=== PATIENT | female | born 1965 | race Caucasian/White ===

== ENCOUNTER 2023-01-12 11:57 | Inpatient (IN) ==
[2023-01-12] MEDS ORDERED: SODIUM CHLORIDE 0.9% 500 ML IV STA (12:23)
--- NOTE | 2023-01-12 12:23 | ED Triage Note ---
Date of Service January 12, 2023 History of Present Illness This patient was briefly evaluated while in triage. An abbreviated physical exam was performed. This patient is a 57-year-old Female who presents to the ED for evaluation of flank pain. Patient is from [place] and is in town visiting. She states she has a kidney stone which measured [address] scan at [facility]. She states that she was supposed to be admitted there but left because she was not being monitored or receiving pain medications. She is still having left sided flank pain. She has had fevers and was told she has an infection. She has a history of multiple kidney stones in the past. Currently denies pain but states that is because she has pain medication on board. Physical Exam VITALS: Vitals are noted on the nurse's note and reviewed by myself. HEART: Regular rate and rhythm without murmurs gallops or rubs. LUNGS: Clear to auscultation bilaterally without wheezes, rales or rhonchi. ABDOMEN: Positive bowel sounds x 4. Soft, nontender to palpation. No CVA t enderness. NEURO: Patient was alert and oriented to person place and time. Initial orders for labs and / or imaging were placed and patient was placed in the waiting area until a bed is available. Please see further documentation for the full ED course. MDM / Impression Impression Impression: Hydronephrosis with renal and ureteral calculous obstruction
--- NOTE | 2023-01-12 13:01 | XRay Report ---
XR KUB/Abdomen 1 view CLINICAL HISTORY: known left sided kidney stone TECHNIQUE: 1 view of the abdomen was obtained. Comparison: None available at the time of this dictation. FINDINGS: Lung bases are unremarkable. Degenerative changes are seen in the visualized skeleton. The bowel gas pattern is nonobstructive. A moderate amount of stool is noted within the large bowel. IMPRESSION: No radiographic evidence of nephrolithiasis. Of note, noncontrast CT abdomen pelvis is a more sensiti ve modality, and per ACR criteria is appropriate for patients with acute onset flank pain with known stone disease. ACT 112: Negative or not required by law. Electronically signed by: Adam Farfan M.D. 01/12/2023 12:59 PM
[2023-01-12 13:26] LABS: Basophils # (auto) 0.03 K/uL (0.00-0.20); Basophils % (auto) 0.3 %; Eosinophils % (auto) 2.3 %; Hematocrit (blood only) 38.2 % (37.0-47.0); Hemoglobin 12.8 g/dl (12.0-16.0); Immature Granulocytes # (auto) 0.03 K/uL (0.01-0.20); Immature Granulocytes % (auto) 0.3 %; Lymphocytes # (auto) 1.35 K/uL (1.20-3.40); Lymphocytes % (auto) 15.6 %; Mean Corpuscular Hemoglobin 29.4 pg (25.0-34.0); Mean Corpuscular Hgb Conc 33.5 g/dL (32.0-36.0); Mean Corpuscular Volume 87.8 fL (80.0-100.0); Mean Platelet Volume 10.4 fL (9.4-12.4); Monocytes # (auto) 0.63 K/uL (0.11-0.59); Monocytes % (auto) 7.3 %; Neutrophils # (auto) 6.42 K/uL (1.40-6.50); Neutrophils % (auto) 74.2 %; Platelet Count 315 K/uL (130-400); RDW Coefficient of Variation 13.3 % (11.5-14.5); RDW Standard Deviation 42.8 fL (36.4-46.3); Red Blood Count 4.35 M/uL (4.20-5.40); White Blood Count 8.66 K/ul (4.8-10.8)
[2023-01-12 13:41] LABS: Alanine Aminotransferase 17 U/L (7-52); Albumin Globulin Ratio 1.6 (0.9-2); Albumin Level 4.6 gm/dl (3.4-5.0); Alkaline Phosphatase 124 U/L (34-104); Anion Gap 6 (3-11); Aspartate Aminotransferase 19 U/L (13-39); BUN Creatinine Ratio 17.5 (10-20); Bilirubin,Total 0.5 mg/dl (0.2-1.0); Blood Urea Nitrogen 27 mg/dl (6-23); Calcium 9.4 mg/dl (8.6-10.3); Carbon Dioxide 27 mmol/L (21-32); Chloride 107 mmol/L (98-107); Est GFR (African American) 43.3 ml/min; Est GFR (Non-African American) 37.3 ml/min; Globulin 2.9 gm/dl (2.5-4.0); Glucose 114 mg/dl (70-99(Fasting)); Potassium 3.8 mmol/L (3.5-5.1); Sodium 140 mmol/L (136-145); Total Protein 7.5 gm/dl (6.0-8.3)
--- NOTE | 2023-01-12 14:43 | CT Scan Report ---
CT SCAN OF THE ABDOMEN AND PELVIS WITHOUT IV CONTRAST CLINICAL HISTORY: Left flank pain. COMPARISON STUDY: Abdominal radiograph dated 01/12/2023. TECHNIQUE: CT scan of the abdomen and pelvis is performed from the lung bases to the proximal femora. Images are reviewed in the axial, sagittal, and coronal planes. IV contrast was not administered for this examination. A dose lowering technique was utilized adhering to the principles of ALARA. CT DOSE: 1446.66 mGy.cm FINDINGS: Lung bases: The heart is normal in size and without pericardial effusion. The mitral annulus is calci fied. The lung bases are clear noting dependent atelectasis. There is a small hiatal hernia. Liver: The unenhanced liver is enlarged measuring 18.9 cm in length. The liver demonstrates diffusely diminished attenuation indicating steatosis. There is mild central intrahepatic biliary ductal dilat ation. Gallbladder: Surgically absent noting clips in the gallbladder fossa. Spleen: Normal in size and attenuation. Pancreas: Unremarkable. Adrenal glands: Unremarkable. Kidneys: The unenhanced kidneys are normal in size. There is a 9 mm obstructing calculus in the left proximal ureter seen on image #194. This is located at L3-L4 and causes moderate to severe left hydro ureteronephrosis. There is associated left-sided perinephric stranding and fluid. There are at least 4 additional nonobstructing left renal calculi which measure up to 3 mm. A 4 mm nonobstructing calcul us is seen in the right kidney. There is no right ureteral stone or right-sided hydronephrosis. There is no evidence of contour deforming renal mass lesion. Abdominal vasculature: The abdominal aorta is normal in course and caliber. Bowel: There is no bowel obstruction. Mild fecal retention is seen throughout the colon. The appendix is not visualized. Peritoneum: There is no intraperitoneal free air or abdominal ascites. There is a fat-containing umbi lical hernia. Lymphadenopathy: None. Pelvic viscera: The bladder is decompressed and grossly unremarkable. The uterus and adnexa are kaylee l as visualized. A metallic foreign body is noted in the right groin on axial image #388. Skeletal structures: The skeletal structures are osteopenic. There is a mild and age indeterminant ramos perior endplate compression deformity of T12. No lytic or blastic lesions are seen. An intrathecal ca theter is in place. Sclerotic change is noted in the sacroiliac joints. IMPRESSION: 1. There is a 9 mm obstructing calculus in the left proximal ureter. This causes moderate to severe l eft hydroureteronephrosis. 2. Additional nonobstructing renal calculi are seen bilaterally. 3. A metallic foreign body is noted in the right groin. 4. Mild and age indeterminate superior endplate compression deformity of T12. Correlate clinically. 5. Additional findings as above. ACT 112: Negative or not required by law. Electronically signed by: Joshua Rangel M.D. 01/12/2023 2:42 PM
[2023-01-12 14:46] LABS: Appearance Urine Clear (Clear); Bilirubin Urine Negative (Negative); Blood Urine Negative (Negative); Color Urine Yellow; Glucose Urine UA Negative (Negative); Ketones Urine Negative (Negative); Leukocyte Esterase Urine Negative (Negative); Nitrite Urine Negative (Negative); Protein Urine Negative (Negative); Specific Gravity Urine 1.014 (1.000-1.030); Urobilinogen Urine Negative (Negative); pH Urine 5.5 (4.5-7.5)
[2023-01-12] MEDS ORDERED: ONDANSETRON INJ 2 MG/ML 2 ML VIAL IV STA (15:37)
[2023-01-12] MEDS ORDERED: KETOROLAC TROMETHAMINE 15 MG/ML VIAL IV STA (15:37)
--- NOTE | 2023-01-12 15:37 | Emergency Department Note ---
History of Present Illness General Chief Complaint: Flank Pain Stated Complaint: KIDNEY STONE Time Seen by Provider: 01/12/23 15:19 History of Present Illness Provider Complaint: flank pain Onset (ago): 2 day(s) Pain Consistency: intermittent Location: L flank Severity: severe Current Pain Intensity: 9 Quality: + stabbing and + sharp Relieved By: + nothing Exacerbated By: + nothing Context: + history of similar episodes (Feels like previous kidney stones has needed stents and lithotripsy in the past); no foreign travel, no possible food poisoning, no sick contacts, no recent antibiotic use, no recent surgery/procedure or no recent injury Associated Symptoms: + nausea; no vomiting, no fever, no chills, no dysuria, no hematemesis, no hematochezia, no melena, no hematuria, no anorexia, no headache, no chest pain and no breathing difficulty Home Medications Medication Instructions Recorded Confirmed Type No Known Home Medications 01/12/23 01/12/23 History Allergies Allergy/AdvReac Type Severity Reaction Status Date / Time iodine Allergy Severe Anaphylaxis Unverified 01/12/23 15:48 levofloxacin [From Levaquin] AdvReac Mild Hallucinati Unverified 01/12/23 15:48 ng Past Med/Surg History Medical History 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 Antiphospholipid antibody syndrome HTN (hypertension) hx of, not currently on treatment Nephrolithiasis SLE (systemic lupus erythematosus) currently not on tx Stroke 2002 and 2005, R sided weakness and fatigue, walks with a cane T2DM (type 2 diabetes mellitus) Surgical History Hx of appendectomy Hx of cholecystectomy Social History Smoking Status: Never smoker Hx Alcohol Use: No Hx Substance Use: No Preferred Language: Ecuad[place] marital status: current occupational status: disabled current occupation: former teacher Feels Safe at Home: Yes Physical Exam Vital Signs: Vital Signs - 24 hr 01/12/23 12:18 Temperature 36.6 C Temperature Source Temporal Artery Sc an Pulse Rate 94 H Respiratory Rate 18 Respiratory Effort / Characteristics Non-Labored Sponta neous Respiratory Depth Normal Respiratory Patter n Regular Blood Pressure 187/114 H Blood Pressure Candy n 138 Blood Pressure Pos ition Sitting Pulse Oximetry 97 Oxygen Delivery Me thod Room Air Sepsis Recent Feve r Within 48 Hours Yes Sepsis New/Unexpla ined Change in Men jose Status N/A Sepsis Action Take n by Nursing No Action Required Physical Exam: Physical Exam GENERAL: oriented to person, place, and time. appears well-developed and well- nourished. HENT: Exam performed. - Head: Normocephalic and atraumatic. EYES: Conjunctivae and EOM are normal. Right eye exhibits no discharge. Left eye exhibits no discharge. No scleral icterus. NECK: Normal range of motion. Neck supple. No JVD present. CV: Normal rate, regular rhythm, normal heart sounds and intact distal pulses. There is no peripheral edema. Palpable radial pulses bue. PULM/CHEST: Effort normal and breath sounds normal. No respiratory distress. No stridor. no wheezes. no rales. ABD: The abdomen is soft. There is no tenderness. Left-sided CVA tenderness. NEURO: Motor and sensation grossly intact. SKIN: Skin is warm and dry. He is not diaphoretic. PSYCH: normal mood and affect. Behavior is normal. Judgment and thought content normal. Course Course 151: The patient was evaluated in room A11. A complete history and physical exam was performed Administered Medications Discontinued Medications Sodium Chloride (Nss) 500 mls @ 999 mls/hr IV .Q31M STA Stop: 01/12/23 12:53 Last Infusion: 01/12/23 15:34 Dose: 0 mls/hr Documented By: Admin: 01/12/23 13:06 Dose: 999 mls/hr Documented By: BS Medical Decision Making Laboratory Data Attestation: I reviewed the patient's lab results. 01/12/23 12:52 01/12/23 12:52 Lab Results 01/12/23 01/12/23 01/12/23 Range/Units 12:52 12:52 14:17 WBC 8.66 (4.8-10.8) K/ul RBC 4.35 (4.20-5.40) M/uL Hgb 12.8 (12.0-16.0) g/dl Hct 38.2 (37.0-47.0) % MCV 87.8 (80.0-100.0) fL MCH 29.4 (25.0-34.0) pg MCHC 33.5 (32.0-36.0) g/dL RDW Std Deviation 42.8 (36.4-46.3) fL RDW Coeff of Abraham 13.3 (11.5-14.5) % Plt Count 315 (130-400) K/uL MPV 10.4 (9.4-12.4) fL Immature Gran % (Auto) 0.3 % Neut % (Auto) 74.2 % Lymph % (Auto) 15.6 % [place] % (Auto) 7.3 % Eos % (Auto) 2.3 % Baso % (Auto) 0.3 % Neut # (Auto) 6.42 (1.40-6.50) K/uL Lymph # (Auto) 1.35 (1.20-3.40) K/uL [place] # (Auto) 0.63 H (0.11-0.59) K/uL Eos # (Auto) 0.20 (0.00-0.50) K/uL Baso # (Auto) 0.03 (0.00-0.20) K/uL Immature Gran # (Auto) 0.03 (0.01-0.20) K/uL Sodium 140 (136-145) mmol/L Potassium 3.8 (3.5-5.1) mmol/L Chloride 107 (98-107) mmol/L Carbon Dioxide 27 (21-32) mmol/L Anion Gap 6 (3-11) BUN 27 H (6-23) mg/dl Creatinine 1.54 H (0.6-1.2) mg/dl Est Cr Clr Drug Dosing Not Reportable Est GFR ( Amer) 43.3 ml/min Est GFR (Non-Af Amer) 37.3 ml/min BUN/Creatinine Ratio 17.5 (10-20) Glucose 114 H (70-99(Fasting)) mg/dl Calcium 9.4 (8.6-10.3) mg/dl Total Bilirubin 0.5 (0.2-1.0) mg/dl AST 19 (13-39) U/L ALT 17 (7-52) U/L Alkaline Phosphatase 124 H (34-104) U/L Total Protein 7.5 (6.0-8.3) gm/dl Albumin 4.6 (3.4-5.0) gm/dl Globulin 2.9 (2.5-4.0) gm/dl Albumin/Globulin Ratio 1.6 (0.9-2) Urine Color Yellow Urine Appearance Clear (Clear) Urine pH 5.5 (4.5-7.5) Ur Specific [place] 1.014 (1.000-1.030) Urine Protein Negative (Negative) Urine Glucose (UA) Negative (Negative) Urine Ketones Negative (Negative) Urine Blood Negative (Negative) Urine Nitrite Negative (Negative) Urine Bilirubin Negative (Negative) Urine Urobilinogen Negative (Negative) Ur Leukocyte Esterase Negative (Negative) Imaging Data Radiologist's Impression: KUB X-Ray 01/12/23 12:23 XR KUB/Abdomen 1 view CLINICAL HISTORY: known left sided kidney stone TECHNIQUE: 1 view of the abdomen was obtained. Comparison: None available at the time of this dictation. FINDINGS: Lung bases are unremarkable. Degenerative changes are seen in the visualized skeleton. The bowel gas pattern is nonobstructive. A moderate amount of stool is noted within the large bowel. IMPRESSION: No radiographic evidence of nephrolithiasis. Of note, noncontrast CT abdomen pelvis is a more sensitive modality, and per ACR criteria is appropriate for patients with acute onset flank pain with known stone disease. ACT 112: Negative or not required by law. Electronically signed by: Adam Farfan M.D. 01/12/2023 12:59 PM Abdomen/Pelvis CT 01/12/23 13:45 CT SCAN OF THE ABDOMEN AND PELVIS WITHOUT IV CONTRAST CLINICAL HISTORY: Left flank pain. COMPARISON STUDY: Abdominal radiograph dated 01/12/2023. TECHNIQUE: CT scan of the abdomen and pelvis is performed from the lung bases to the proximal femora. Images are reviewed in the axial, sagittal, and coronal planes. IV contrast was not administered for this examination. A dose lowering technique was utilized adhering to the principles of ALARA. CT DOSE: 1446.66 mGy.cm FINDINGS: Lung bases: The heart is normal in size and without pericardial effusion. The mitral annulus is calcified. The lung bases are clear noting dependent atelectas is. There is a small hiatal hernia. Liver: The unenhanced liver is enlarged measuring 18.9 cm in length. The liver demonstrates diffusely diminished attenuation indicating steatosis. There is mild central intrahepatic biliary ductal dilatation. Gallbladder: Surgically absent noting clips in the gallbladder fossa. Spleen: Normal in size and attenuation. Pancreas: Unremarkable. Adrenal glands: Unremarkable. Kidneys: The unenhanced kidneys are normal in size. There is a 9 mm obstructing calculus in the left proximal ureter seen on image #194. This is located at L3- L4 and causes moderate to severe left hydroureteronephrosis. There is associated left-sided perinephric stranding and fluid. There are at least 4 additional nonobstructing left renal calculi which measure up to 3 mm. A 4 mm nonobstructing calculus is seen in the right kidney. There is no right ureteral stone or right-sided hydronephrosis. There is no evidence of contour deforming renal mass lesion. Abdominal vasculature: The abdominal aorta is normal in course and caliber. Bowel: There is no bowel obstruction. Mild fecal retention is seen throughout the colon. The appendix is not visualized. Peritoneum: There is no intraperitoneal free air or abdominal ascites. There is a fat-containing umbilical hernia. Lymphadenopathy: None. Pelvic viscera: The bladder is decompressed and grossly unremarkable. The uterus and adnexa are normal as visualized. A metallic foreign body is noted in the right groin on axial image #388. Skeletal structures: The skeletal structures are osteopenic. There is a mild and age indeterminant superior endplate compression deformity of T12. No lytic or blastic lesions are seen. An intrathecal catheter is in place. Sclerotic change is noted in the sacroiliac joints. IMPRESSION: 1. There is a 9 mm obstructing calculus in the left proximal ureter. This causes moderate to severe left hydroureteronephrosis. 2. Additional nonobstructing renal calculi are seen bilaterally. 3. A metallic foreign body is noted in the right groin. 4. Mild and age indeterminate superior endplate compression deformity of T12. Correlate clinically. 5. Additional findings as above. ACT 112: Negative or not required by law. Electronically signed by: Joshua Rangel M.D. 01/12/2023 2:42 PM [facility] Narrative Cardiac monitoring: An order was placed for continuous cardiac monitoring. The monitor shows a rate of 90 with sinus rhythm interpreted by me Patient was seen during a time of extreme volume and extreme acuity in the emergency department. Nursing triage protocols were initiated and labs and imaging were drawn by protocol in the triage area. Labs show a creatinine of 1.54. Imaging shows a 9 mm kidney stone. Spoke with Mel from your to evaluate the patient. [facility] team spoke with Leixs who stated to admit to Dr. Sweeney. Impression & Plan Hydronephrosis with renal and ureteral calculous obstruction Discharge Plan Visit Data Chief Complaint: Flank Pain Stated Complaint: KIDNEY STONE ED Provider: Kurt Suazo Discharge Problem: Hydronephrosis with renal and ureteral calculous obstruction Patient Disposition: Admitted As Inpatient Forms Stand Alone Forms: [employer] Prescriptions Prescriptions: No Action No Known Home Medications Referrals Referrals: PCP,NO [Primary Care Provider] -
[2023-01-12] MEDS ORDERED: SODIUM CHLORIDE 0.9% 1,000 ML IV SCH (15:45)
[2023-01-12] MEDS ORDERED: MoRPHine SULFATE 4 MG/ML 1 ML CARP\\VIAL IV STA (16:15)
[2023-01-12] MEDS ORDERED: MoRPHine SULFATE 4 MG/ML 1 ML CARP\\VIAL ONE (16:17)
--- NOTE | 2023-01-12 16:23 | History & Physical Report ---
Date of Service January 12, 2023 Assessment & Plan (1) Hydronephrosis with renal and ureteral calculous obstruction: (2) Acute renal insufficiency: (3) SLE (systemic lupus erythematosus): Plan This is a 57-year-old female who presents to ED secondary to left flank pain x2 days. Patient is not from the area, previously resided in [place] and is now relocating to [place]. She is passing through the area when she developed her left flank pain. She has prior past medical history of systemic lupus, antiphospholipid antibody syndrome, history of CVA x2 with residual right-sided weakness for which she ambulates with a cane, CKD, history of previous kidney stones treated with lithotripsy, history of HTN and T2DM. Obstructing L prox ureteral stone with mod-severe hydronephrosis admit to medical discussed with urology, Mel Hernán will make NPO after midnight start flomax 0.4mg at HS strain all urine pain control with IV morphine severe pain and oral oxy moderate pain schedule tylenol IV LR @ 150cc/hr avoid NSAIDS due to renal disease Acute renal insufficiency on CKD unknown baseline cr but pt tells me she has a degree of renal dysfunction due to lupus she states her baseline eGFR is 40-60 current EGFR 37, Cr 1.5, suspect some degree of insufficiency given stone monitor renal fxn closely, avoid nephrotoxic agents SLE hx of CVA x 2 with residual R sided weakness Hx of HTN/T2DM pt currently off all medications due to lack of insurance no current manifestations of SLE at this time obtain a1c and monitor bp accordingly, bp likely elevated in setting of pain DVT ppx: give heparin x1 dose tonight until determine timing of procedure, SCDS, recommend resuming chemical ppx at discretion of urology FULL CODE PCP: currently establishing with new providers when they arrive to [place], [place] Pt was seen and examined in collaboration with Dr. Gan, please see addendum A total of 75 was spent coordinating, documenting, and providing care for this patient excluding time spent in the performance of separately billed services. This included personally viewing all current laboratories and imaging studies, medication reconciliation, outpatient chart review, and discussion with specialists. History of Present Illness Chief Complaint: L Flank Pain x 2 days. Primary Care Provider: NO PCP This is a 57-year-old female who presents to ED secondary to left flank pain x2 days. Patient is not from the area, previously resided in [place] and is now relocating to [place]. She is passing through the area when she developed her left flank pain. She has prior past medical history of systemic lupus, antiphospholipid antibody syndrome, history of CVA x2 with residual right-sided weakness for which she ambulates with a cane, CKD, history of previous kidney stones treated with lithotripsy, history of HTN and T2DM. Currently she is not taking any medications as she is disabled and lost job; therefore, they are without insurance. Left leg pain started at 5 AM yesterday. Pain is constant but waxes and wanes in severity. Pain is nonradiating. She denies any fever, chills, sweats, lightheadedness, dizziness, dysuria, hematuria, increased urgency or frequency with urination, nausea, vomiting, abdominal pain and change in bowel habits. She has history of kidney stones in the past requiring lithotripsy, but this feels different than previous. In ED patient remained hemodynamically stable. There was no signs of sepsis. Her CBC and CMP was generally unremarkable several mildly elevated BUN and creatinine at 27 and 1.54. Her urinalysis was negative. CT abdomen pelvis revealed a 9 mm obstructing stone at the left proximal ureter with severe hydronephrosis. 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 Antiphospholipid antibody syndrome HTN (hypertension) hx of, not currently on treatment Nephrolithiasis SLE (systemic lupus erythematosus) currently not on tx Stroke 2002 and 2005, R sided weakness and fatigue, walks with a cane T2DM (type 2 diabetes mellitus) Surgical History (Updated 01/12/23 @ 16:31 by Lexis Hood PA-C) History of hip surgery Hx of appendectomy Hx of cholecystectomy Hx of lithotripsy Hx of shoulder surgery rotator cuff Family History (Updated 01/12/23 @ 16:23 by Lexis Hood PA-C) Other Family history non-contributory Social History Smoking Status: Never smoker Hx Alcohol Use: No Hx Substance Use: No Preferred Language: Turkish marital status: current occupational status: disabled current occupation: former teacher Feels Safe at Home: Yes Review of Systems Review of Systems: All systems reviewed & are unremarkable except as noted in HPI & below Physical Exam Physical Exam: Constitutional: WD/WN, vitals as above, NAD, sitting up in bed, pleasant, conversing easily Head: Normocephalic, Atraumatic Eyes: PERRL, conjunctivae normal, anicteric sclerae ENMT: external ear and nose normal, oropharynx normal Neck: trachea midline, no thyromegaly normal visual inspection Respiratory: normal respiratory effort, lungs clear to auscultation, no wheeze, rales, rhonchi. Normal insp/exp effort, no accessory muscle use Cardiovascular: RRR, no murmur, no edema Vessels: no JVD or carotid bruit Chest: normal inspection of chest Abdomen: normal bowel sounds, soft, nontender, no hepatosplenomegaly Musculoskeletal: no cyanosis or clubbing, extremities motor strength 5/5 Skin: no rashes, warm and dry normal turgor Neurologic: PERRL, EOMI, accommodation nl, no face palsy, no dysarthria CN's II-XI intact bilaterally and moves all extremities Psychiatric: A+Ox3, euthymic affect Lymphatic: no cervical or axillary lymphadenopathy : deferred Results & Data Results & Data Vital Signs (Past 12 Hours) Vital Signs Temp Pulse Resp BP Pulse Ox O2 Del Method 01/12/23 12:18 36.6 C 94 H 18 187/114 H 97 Room Air Diagnostic Findings KUB X-Ray 01/12/23 12:23 XR KUB/Abdomen 1 view CLINICAL HISTORY: known left sided kidney stone TECHNIQUE: 1 view of the abdomen was obtained. Comparison: None available at the time of this dictation. FINDINGS: Lung bases are unremarkable. Degenerative changes are seen in the visualized skeleton. The bowel gas pattern is nonobstructive. A moderate amount of stool is noted within the large bowel. IMPRESSION: No radiographic evidence of nephrolithiasis. Of note, noncontrast CT abdomen pelvis is a more sensitive modality, and per ACR criteria is appropriate for patients with acute onset flank pain with known stone disease. ACT 112: Negative or not required by law. Electronically signed by: Adam Farfan M.D. 01/12/2023 12:59 PM Abdomen/Pelvis CT 01/12/23 13:45 CT SCAN OF THE ABDOMEN AND PELVIS WITHOUT IV CONTRAST CLINICAL HISTORY: Left flank pain. COMPARISON STUDY: Abdominal radiograph dated 01/12/2023. TECHNIQUE: CT scan of the abdomen and pelvis is performed from the lung bases to the proximal femora. Images are reviewed in the axial, sagittal, and coronal planes. IV contrast was not administered for this examination. A dose lowering technique was utilized adhering to the principles of ALARA. CT DOSE: 1446.66 mGy.cm FINDINGS: Lung bases: The heart is normal in size and without pericardial effusion. The mitral annulus is calcified. The lung bases are clear noting dependent atelectasis. There is a small hiatal hernia. Liver: The unenhanced liver is enlarged measuring 18.9 cm in length. The liver demonstrates diffusely diminished attenuation indicating steatosis. There is mild central intrahepatic biliary ductal dilatation. Gallbladder: Surgically absent noting clips in the gallbladder fossa. Spleen: Normal in size and attenuation. Pancreas: Unremarkable. Adrenal glands: Unremarkable. Kidneys: The unenhanced kidneys are normal in size. There is a 9 mm obstructing calculus in the left proximal ureter seen on image #194. This is located at L3- L4 and causes moderate to severe left hydroureteronephrosis. There is associated left-sided perinephric stranding and fluid. There are at least 4 additional nonobstructing left renal calculi which measure up to 3 mm. A 4 mm nonobstructing calculus is seen in the right kidney. There is no right ureteral stone or right-sided hydronephrosis. There is no evidence of contour deforming renal mass lesion. Abdominal vasculature: The abdominal aorta is normal in course and caliber. Bowel: There is no bowel obstruction. Mild fecal retention is seen throughout the colon. The appendix is not visualized. Peritoneum: There is no intraperitoneal free air or abdominal ascites. There is a fat-containing umbilical hernia. Lymphadenopathy: None. Pelvic viscera: The bladder is decompressed and grossly unremarkable. The uterus and adnexa are normal as visualized. A metallic foreign body is noted in the right groin on axial image #388. Skeletal structures: The skeletal structures are osteopenic. There is a mild and age indeterminant superior endplate compression deformity of T12. No lytic or blastic lesions are seen. An intrathecal catheter is in place. Sclerotic change is noted in the sacroiliac joints. IMPRESSION: 1. There is a 9 mm obstructing calculus in the left proximal ureter. This causes moderate to severe left hydroureteronephrosis. 2. Additional nonobstructing renal calculi are seen bilaterally. 3. A metallic foreign body is noted in the right groin. 4. Mild and age indeterminate superior endplate compression deformity of T12. Correlate clinically. 5. Additional findings as above. ACT 112: Negative or not required by law. Electronically signed by: Joshua Rangel M.D. 01/12/2023 2:42 PM Medications Administered Medication List Discontinued Medications Sodium Chloride (Nss) 500 mls @ 999 mls/hr IV .Q31M STA Stop: 01/12/23 12:53 Last Infusion: 01/12/23 15:34 Dose: 0 mls/hr Documented By: Admin: 01/12/23 13:06 Dose: 999 mls/hr Documented By: BS COVID-19 Results Results COVID-19 Adm Lab Results: RBC 4.35 M/uL (4.20-5.40) 01/12/23 WBC 8.66 K/ul (4.8-10.8) 01/12/23 Hgb 12.8 g/dl (12.0-16.0) 01/12/23 Hct 38.2 % (37.0-47.0) 01/12/23 Plt Count 315 K/uL (130-400) 01/12/23 Neutrophils (%) (Auto) 74.2 % 01/12/23 Lymphocytes (%) (Auto) 15.6 % 01/12/23 Monocytes # (Auto) 0.63 K/uL (0.11-0.59) H 01/12/23 Eosinophils # (Auto) 0.20 K/uL (0.00-0.50) 01/12/23 Immature Granulocyte % (Auto) 0.3 % 01/12/23 Neutrophils # (Auto) 6.42 K/uL (1.40-6.50) 01/12/23 Lymphocytes # (Auto) 1.35 K/uL (1.20-3.40) 01/12/23 Monocytes # (Auto) 0.63 K/uL (0.11-0.59) H 01/12/23 Eosinophils # (Auto) 0.20 K/uL (0.00-0.50) 01/12/23 Basophils # (Auto) 0.03 K/uL (0.00-0.20) 01/12/23 Immature Granulocyte # (Auto) 0.03 K/uL (0.01-0.20) 3 Na 140 mmol/L (136-145) 01/12/23 K 3.8 mmol/L (3.5-5.1) 01/12/23 Cl 107 mmol/L (98-107) 01/12/23 CO2 27 mmol/L (21-32) 01/12/23 Anion Gap 6 (3-11) 01/12/23 BUN 27 mg/dl (6-23) H 01/12/23 Creatinine 1.54 mg/dl (0.6-1.2) H 01/12/23 BUN/Creatinine Ratio 17.5 (10-20) 01/12/23 Glucose Level 114 mg/dl (70-99(Fasting)) H 01/12/23 Ca 9.4 mg/dl (8.6-10.3) 01/12/23 Total Bilirubin 0.5 mg/dl (0.2-1.0) 01/12/23 AST/SGOT 19 U/L (13-39) 01/12/23 ALT/SGPT 17 U/L (7-52) 01/12/23 Alkaline Phosphatase 124 U/L (34-104) H 01/12/23 Total Protein 7.5 gm/dl (6.0-8.3) 01/12/23 Albumin 4.6 gm/dl (3.4-5.0) 01/12/23 Globulin 2.9 gm/dl (2.5-4.0) 01/12/23 Albumin/Globulin Ratio 1.6 (0.9-2) 01/12/23 Code Status & VTE Plan Code Status FULL CODE Supervising Physician Co-Signing Physician Notes I have seen and examined the patient and have discussed the case with the provider above. I agree with the assessment and plan as stated. 57-year-old female presented with left flank pain secondary to ureteral colic. CT abdomen pelvis without contrast reveals a 9 mm obstructing calculus in the left proximal ureter with severe left hydroureteronephrosis. On exam she has significant left CVA tenderness. She is otherwise not appearing septic, urine is not infected. She has underlying CKD stage III which she reports at baseline (records are unavailable as patient is from out of town). Current creatinine is elevated today at 1.54. She is hemodynamically stable and afebrile. She is ambulatory. Pain is being controlled with morphine. Avoiding NSAIDs at this time given LINDA. Agree with starting Flomax and continuing fluids. Appreciate urology consult for definitive stone management. Notably patient has lupus but no evidence of lupus flare at this time. DO Malik
[2023-01-12] MEDS ORDERED: POLYETHYLENE (MIRALAX) 17 GM PACK PO PRN (19:55)
[2023-01-12] MEDS ORDERED: ALUMINUM/MAGNESIUM SUSP 30 ML UDC PO PRN (19:55)
[2023-01-12] MEDS ORDERED: ACETAMINOPHEN 325 MG TAB PO PRN (19:55)
[2023-01-12] MEDS ORDERED: MAGNESIUM HYDROXIDE SUSP 30 ML UDC PO PRN (19:55)
[2023-01-12] MEDS: ACETAMINOPHEN 325 MG TAB PO SCH (20:16)
[2023-01-12] MEDS: MoRPHine SULFATE 4 MG/ML 1 ML CARP\\VIAL IV PRN (20:18)
[2023-01-12] MEDS ORDERED: HEPARIN SOD 5,000 UNIT/0.5 ML VIAL SQ ONE (21:00)
[2023-01-12] MEDS: ONDANSETRON INJ 2 MG/ML 2 ML VIAL IV PRN (21:01)
[2023-01-12] MEDS: DOCUSATE SODIUM/SENNA 50/8.6MG TAB PO SCH (21:38)
[2023-01-12] MEDS: TAMSULOSIN HCL 0.4 MG CAP PO SCH (21:38)
[2023-01-12] MEDS: LACTATED RINGER'S 1,000 ML IV SCH (22:04)
[2023-01-12] MEDS: oxyCODONE HCL IR 5 MG TAB (IMMEDIATE RELEASE) PO PRN (23:13)
[2023-01-13] MEDS: MoRPHine SULFATE 4 MG/ML 1 ML CARP\\VIAL IV PRN ×4 (00:36→21:20)
[2023-01-13] MEDS: PROMETHAZINE HCL 12.5 MG in SODIUM CHLORIDE 0.9% 50 ML IV PRN ×3 (00:36→21:17)
[2023-01-13] MEDS: ONDANSETRON INJ 2 MG/ML 2 ML VIAL IV PRN (04:48)
[2023-01-13] MEDS: ACETAMINOPHEN 325 MG TAB PO SCH ×3 (04:51→21:20)
[2023-01-13] MEDS: LACTATED RINGER'S 1,000 ML IV SCH ×3 (04:53→16:47)
--- NOTE | 2023-01-13 08:53 | Anesthesiology Consultation ---
Date of Service January 13, 2023 Assessment & Plan (1) Encounter for pre-operative examination: Chart Review Chart Review: Acceptable Risk for Surgery and Patient NOT seen in Pre Admission Testing Consults Requested none History Surgery Operation Date: 01/13/23 07:00 Proposed Procedures p Cystoscopy, Left Stent Placement - Hoang Magallanes, Height/Weight Height: 5 ft 10 in Weight: 99.9 kg Allergies Allergy/AdvReac Type Severity Reaction Status Date / Time iodine Allergy Severe Anaphylaxis Unverified 01/12/23 15:48 levofloxacin [From Levaquin] AdvReac Mild Hallucinati Unverified 01/12/23 15:48 ng Medications Home Medications Medication Instructions Recorded Confirmed Last Taken No Known Home Medications 01/12/23 01/12/23 Unknown Active Medications Generic Name Dose Route Start Last Admin Trade Name Freq PRN Reason Stop Dose Admin Acetaminophen 650 mg 01/12/23 19:55 01/13/23 04:51 Acetaminophen 325 Mg Tab PO 02/11/23 19:54 650 mg Q8 CHANCE Administration Lactated Ringer's 1,000 mls @ 150 mls/hr 01/12/23 19:55 01/13/23 04:53 Lr IV 02/11/23 19:54 150 mls/hr .Q6H40M CHANCE Administration Promethazine HCl 12.5 mg/ 50.5 mls @ 202 mls/hr 01/12/23 23:12 01/13/23 01:20 Sodium Chloride IV 02/11/23 23:11 Infused Q6H PRN Infusion Nausea And Vomiting Morphine Sulfate 4 mg 01/12/23 19:55 01/13/23 04:44 Morphine Sulfate 4 Mg/Ml 1 Ml Carp\Vial IV 01/26/23 19:54 4 mg Q4H PRN Administration severe pain 7,8,9,10 Ondansetron HCl 4 mg 01/12/23 19:55 01/13/23 04:48 Ondansetron Inj 2 Mg/Ml 2 Ml Vial IV 02/11/23 19:54 4 mg Q6H PRN Administration Nausea Oxycodone HCl 5 mg 01/12/23 19:55 01/12/23 23:13 Oxycodone Hcl Ir 5 Mg Tab (Immediate Release) PO 01/26/23 19:54 5 mg Q4H PRN Administration moderate pain 3,4,5,6 Senna/Docusate Sodium 2 tab 01/12/23 21:00 01/12/23 21:38 Docusate Sodium/Senna 50/8.6mg Tab PO 02/11/23 20:59 2 tab HS CHANCE Administration Tamsulosin HCl 0.4 mg 01/12/23 21:00 01/12/23 21:38 Tamsulosin Hcl 0.4 Mg Cap PO 02/11/23 20:59 0.4 mg HS CHANCE Administration Past Medical History Medical History (Updated 01/13/23 @ 08:53 by Alan Little MD) 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 Antiphospholipid antibody syndrome Encounter for pre-operative examination HTN (hypertension) hx of, not currently on treatment Nephrolithiasis SLE (systemic lupus erythematosus) currently not on tx Stroke 2002 and 2005, R sided weakness and fatigue, walks with a cane T2DM (type 2 diabetes mellitus) Past Family History Family History Other Family history non-contributory Past Surgical History Surgical History History of hip surgery Hx of appendectomy Hx of cholecystectomy Hx of lithotripsy Hx of shoulder surgery rotator cuff Social History Smoking Status: Never smoker Hx Alcohol Use: No Hx Substance Use: No Physical Exam Vital Signs Last Vital Signs Temp 37.1 C 01/13/23 07:06 Pulse 67 01/13/23 07:06 Resp 18 01/13/23 07:06 BP 120/72 01/13/23 07:06 Pulse Ox 92 01/13/23 07:06 O2 Del Method Room Air 01/13/23 07:06 Testing Laboratory Results 01/12/23 12:52 01/12/23 12:52 Urine Color Yellow 01/12/23 14:17 Urine Appearance Clear (Clear) 01/12/23 14:17 Urine pH 5.5 (4.5-7.5) 01/12/23 14:17 Ur Specific [place] 1.014 (1.000-1.030) 01/12/23 14:17 Urine Protein Negative (Negative) 01/12/23 14:17 Urine Glucose (UA) Negative (Negative) 01/12/23 14:17 Urine Ketones Negative (Negative) 01/12/23 14:17 Urine Nitrite Negative (Negative) 01/12/23 14:17 Ur Leukocyte Esterase Negative (Negative) 01/12/23 14:17
--- NOTE | 2023-01-13 09:07 | Urology Consultation ---
Date of Consultation January 13, 2023 Assessment & Plan (1) Hydronephrosis with renal and ureteral calculous obstruction: (2) Acute renal insufficiency: (3) Renal colic: Plan 57yo/F admitted with intractable left flank pain secondary to a 9mm obstructing stone at the left proximal ureter with severe hydronephrosis. - Afebrile and hemodynamically stable. - Labs reviewed- WBC 8.66, hemoglobin 12.8, Creatinine 1.54. - UA without signs of infection. - Discussed acute stone management with cystoscopy and stent placement. Ureteral stents were discussed as well as postoperative issues and pain management. She is aware a second procedure will be needed for stone treatment. All questions were answered. She is agreeable to proceeding. - Plan to proceed to OR today for cystoscopy, left retrograde pyelogram, left ureteral stent placement. - Risks and benefits to be reviewed with patient by Dr. Magallanes. - Will cover with IV Ancef preoperatively. - Keep NPO. - Continue supportive care, pain management prn, and tamsulosin. - Urology will follow. History of Present Illness Attending Physician: Stephan Vilchis MD History of Present Illness 57-year-old female with PMHx including nephrolithiasis, systemic lupus, antiphospholipid antibody syndrome, history of CVA x2 with residual right-sided weakness for which she ambulates with a cane, CKD, HTN and T2DM who presented to the ED yesterday with severe left flank pain. On arrival she was afebrile and hemodynamically stable. Labs notable for a creatinine 1.54 and no leukocytosis. Urinalysis without signs of infection or blood. CT abdomen pelvis demonstrated a 9 mm obstructing stone at the left proximal ureter with severe hydronephrosis. She was admitted to medicine service for further management. CT abdomen pelvis- 1. There is a 9 mm obstructing calculus in the left proximal ureter. This causes moderate to severe left hydroureteronephrosis. 2. Additional nonobstructing renal calculi are seen bilaterally. 3. A metallic foreign body is noted in the right groin. 4. Mild and age indeterminate superior endplate compression deformity of T12. Correlate clinically. Pt examined at bedside this AM. Awake, resting in bed on arrival. No acute distress. Still with left flank pain, manageable with medication. Denies fevers, chills, nausea, vomiting. Voiding without issues. Denies hematuria and dysuria. Has been NPO. Patient is not from the area, previously resided in [place] and is now relocating to [place]. She is visiting in the area until Feb 07. Hx of nephrolithiasis with prior interventions. Has poorly tolerated stents in the past. Attending note: Patient independently assessed, examined, interviewed, and evaluated. Agree with note as above. Patient's vitals and labs were all reviewed. Pertinent values in the HPI and plan section. Imaging was reviewed interpreted by myself. Agree with read. On my evaluation patient has an obstructing stone in the proximal left ureter causing considerable obstruction with inflammatory changes and perinephric stranding. Patient has numerous small stones within the left kidney as well. Stone in the left ureter approximately 9 mm. Vitals were reviewed. Currently afebrile. Blood pressure is stable at 120/72. Patient is satting 92% on room air. Patient's white count is 8. 6 6. Creatinine is elevated 1.54. Hemoglobin is 12.8. Discussed findings extensively with patient and family. Reviewed with nurse practitioner as well as consulting physicians/team. Patient's complicated medical and surgical history was reviewed and summarized above. Patient's surgical, medical, social, and family history were all reviewed with pertinent values as above. Discussed patient's current diagnosis as well as concerns and issues. Reviewed different options moving forward. Discussed potential risks and benefits as well as possible options and concerns. Reviewed potential surgical options and interventions. Discussed potential issues and concerns related to intervention. Risk and benefits were discussed extensively with patient and any available family. Discussed potential risks related to anesthesia. Discussed risks of bleeding infection and injury. Risks and benefits discussed at length for procedure. These include bleeding, infection, injury to surrounding tissues or organs, and risks associated with anesthesia. Patient states understanding and agrees to proceed. Will sign consent and proceed. Plan for cystoscopy with left stent placement and possible stone treatment. 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 Antiphospholipid antibody syndrome Encounter for pre-operative examination HTN (hypertension) hx of, not currently on treatment Nephrolithiasis SLE (systemic lupus erythematosus) currently not on tx Stroke 2002 and 2005, R sided weakness and fatigue, walks with a cane T2DM (type 2 diabetes mellitus) Surgical History History of hip surgery Hx of appendectomy Hx of cholecystectomy Hx of lithotripsy Hx of shoulder surgery rotator cuff Family History Other Family history non-contributory Social History Smoking Status: Never smoker Hx Alcohol Use: No Hx Substance Use: No Preferred Language: French Hydrogenation Operator Required: No Beliefs That Will Affect Care: None marital status: Current Living Situation: Spouse Current Living Situation Comment: in travel trailer current occupational status: disabled current occupation: former teacher Other Information That Helps Us Care for You: No Feels Safe at Home: Yes Safety Concerns: Feels Safe At This Time Assistive Devices: Cane and Denture - Upper Assistive Devices Comment: partial upper denture not with patient Review of Systems Review of Systems: All systems reviewed & are unremarkable except as noted in HPI & below Physical Exam Constitutional: well developed and well nourished; no acute distress Neck: normal visual inspection Respiratory: normal respiratory effort; no respiratory distress and no labored breathing Gastrointestinal (Abdomen): Inspection/Auscultation: abdomen normal to inspection Musculoskeletal: Head/Neck/Chest: normocephalic Skin: No visible rashes or lesions to exposed skin areas Neurologic: awake Psychiatric: A+Ox3, euthymic affect Results & Data Vital Signs (Past 12 Hours) Vital Signs Temp Pulse Resp BP Pulse Ox O2 Del Method 01/13/23 07:06 37.1 C 67 18 120/72 92 Room Air 01/12/23 21:30 Room Air 01/12/23 21:30 37.8 C H 89 16 150/103 H 97 Room Air 01/12/23 21:01 97 H 16 155/107 H 95 Room Air PG Care Time/CCT Total # of Minutes Spent Total Time Spent with Patient: Total time spent is greater than 50% in coordination of care (as documented) at patient's floor/unit and/or counseling patient: Coding Level of Care Code 25080 IN/OBS CONSULT LVL 4,60M Diagnoses Hydronephrosis with renal and ureteral calculous obstruction N13.2 Acute renal insufficiency N28.9 Renal colic N23
[2023-01-13] MEDS ORDERED: ceFAZolin 2000MG 2,000 MG/15 ML SYR IV ONE (09:08)
[2023-01-13] MEDS ORDERED: ePHEDrine sulfate 50 MG/ML AMP IV PRN (10:05)
[2023-01-13] MEDS ORDERED: ONDANSETRON INJ 2 MG/ML 2 ML VIAL IV PRN (10:05)
[2023-01-13] MEDS ORDERED: HYDROmorphone INJ 2 MG/ML SYR/VIAL IV PRN (10:05)
[2023-01-13] MEDS ORDERED: fentaNYL citrate PF 100 MCG/2 ML VIAL IV PRN (10:05)
[2023-01-13] MEDS ORDERED: ATROPINE SULFATE 0.1 MG/ML 10ML SYR IV PRN (10:05)
[2023-01-13] MEDS ORDERED: fentaNYL citrate PF 100 MCG/2 ML VIAL ONE (10:27)
[2023-01-13] MEDS ORDERED: MIDAZOLAM HCL 1 MG/ML 2ML VIAL ONE (10:27)
[2023-01-13] MEDS ORDERED: LIDOCAINE 2% 2 ML VIAL/AMP(20MG/ML) INFIL ONE (10:48)
[2023-01-13] MEDS ORDERED: PROPOFOL IV EMULSION 10 MG/ML 20 ML VIAL IV ONE (10:48)
[2023-01-13] MEDS ORDERED: ONDANSETRON INJ 2 MG/ML 2 ML VIAL ONE (10:48)
--- NOTE | 2023-01-13 11:02 | Operative Report ---
PG Post Operative Report Pre & Post Diagnosis Operation Date: 01/13/23 07:00 Pre-Op Diagnosis: Left ureteral stone, severe hydronephrosis Post-Op Diagnosis: Left ureteral stone, severe hydronephrosis I identified the patient and participated in the time-out.: Yes Procedure Operation Date: 01/13/23 07:00 Actual Procedures p Cystoscopy, Left Retrograde Pyelogram, Left Ureteral Stent Placement(Left) - Hoang Magallanes DO Surgeon Hoang Magallanes, II, DO Job Recruiter None Estimated Blood Loss 1 Findings Consistent with Post-Op Diagnosis Stent placed in good position. Significant hydronephrosis Specimens None Drains 6 Fr Multilength Anesthesia Type MAC Complications none Disposition Disposition: Recovery Room Indications Patient with obstruction. Risks and benefits discussed at length. Description of Procedure Patient was consented and brought back to the operating room. Patient was placed under anesthesia in the supine position and moved to the dorsal lithotomy position. Patient was prepped and draped in the regular sterile fashion. A time out was completed. A 30degree Cystoscope was placed into the bladder and the entire bladder was examined. The UO's were identified. The UO was cannulized with a catheter and a retrograde pyelogram was completed. A wire was then placed. With the wire in place, a 6 Fr Double J stent was placed. It was confirmed with fluoroscopy. With the stent in place, the bladder was emptied. The scope was removed. The patient was cleaned, aroused from anesthesia, and transferred to the pacu in stable condition having tolerated the procedure well with no complications. I was present and participated in all aspects of the procedure. The patient will be monitored in the PACU until transferred. Will need stone treatment in next 1-2 weeks. I attest to the content of the Intraoperative Record and any orders documented therein. Any exceptions are noted below.
[2023-01-13] MEDS ORDERED: DIATRIZOATE MEGLUMINE 30% 100ML VIAL INSTIL ONE (11:31)
--- NOTE | 2023-01-13 11:40 | Anesthesiology Progress Note ---
Date of Service January 13, 2023 Anesthesia Post Procedure Vital Signs Vital Signs: Temp Pulse Pulse Pulse Resp BP BP 01/13/23 11:15 36.5 C 84 15 01/13/23 11:05 69 14 01/13/23 10:58 36.7 C 77 16 01/13/23 09:56 36.8 C 86 18 167/83 H 01/13/23 07:06 37.1 C 67 18 120/72 01/12/23 21:30 01/12/23 21:30 37.8 C H 89 16 150/103 H 01/12/23 21:01 97 H 16 155/107 H 01/12/23 18:29 90 20 01/12/23 16:38 82 20 155/98 H 01/12/23 12:18 36.6 C 94 H 18 187/114 H BP Pulse Ox O2 Del Method O2 Flow Rate 01/13/23 11:15 104/63 95 Room Air 01/13/23 11:05 104/59 L 98 Oxymask 4 01/13/23 10:58 105/70 96 Oxymask 6 01/13/23 09:56 98 Room Air 01/13/23 07:06 92 Room Air 01/12/23 21:30 Room Air 01/12/23 21:30 97 Room Air 01/12/23 21:01 95 Room Air 01/12/23 18:29 95 Room Air 01/12/23 16:38 97 Room Air 01/12/23 12:18 97 Room Air Pain Intensity Left Flank: Pain Intensity: 8 Transfer of Care Handoff Completed per policy Notes Mental Status: alert / awake / arousable and participated in evaluation Patient Amnestic to Procedure: Yes Nausea / Vomiting: adequately controlled Pain: adequately controlled Airway Patency, RR, SpO2: stable & adequate BP & HR: stable & adequate Hydration State: stable & adequate Anesthetic Complications: no major complications apparent and Pt Satisfied with anesthetic care
[2023-01-13 11:55] LABS: Basophils # (auto) 0.04 K/uL (0.00-0.20); Basophils % (auto) 0.7 %; Eosinophils # (auto) 0.19 K/uL (0.00-0.50); Eosinophils % (auto) 3.2 %; Immature Granulocytes # (auto) 0.01 K/uL (0.01-0.20); Immature Granulocytes % (auto) 0.2 %; Lymphocytes % (auto) 28.7 %; Mean Corpuscular Hgb Conc 32.3 g/dL (32.0-36.0); Mean Corpuscular Volume 89.9 fL (80.0-100.0); Monocytes # (auto) 0.49 K/uL (0.11-0.59); Monocytes % (auto) 8.3 %; Neutrophils # (auto) 3.49 K/uL (1.40-6.50); Neutrophils % (auto) 58.9 %; Platelet Count 228 K/uL (130-400); RDW Coefficient of Variation 13.2 % (11.5-14.5); RDW Standard Deviation 43.3 fL (36.4-46.3); Red Blood Count 3.45 M/uL (4.20-5.40); White Blood Count 5.92 K/ul (4.8-10.8)
[2023-01-13 12:12] LABS: Calcium 8.8 mg/dl (8.6-10.3); Creatinine Clr Calc Pharmacy 73.1 ml/min; Est GFR (Non-African American) 56.1 ml/min; Magnesium 1.7 mg/dl (1.7-2.4); Potassium 3.8 mmol/L (3.5-5.1)
[2023-01-13 13:07] LABS: Estimated Average Glucose 126 mg/dl
[2023-01-13] MEDS: oxyCODONE HCL IR 5 MG TAB (IMMEDIATE RELEASE) PO PRN (15:50)
--- NOTE | 2023-01-13 16:16 | Fluoroscopy Report ---
INTRAOPERATIVE RADIOGRAPHS CLINICAL HISTORY: Left ureteral stent placement. Fluoro time: 18 seconds Ka,r: 7.25 mGy FINDINGS: 3 spot fluoroscopic views of the left upper abdomen are correlated with abdominal CT dated 01/12/2023. The initial image shows a wire projecting over the left renal pelvis. Injected contrast sh ows moderate hydronephrosis. The final images show the proximal and distal ends of a left ureteral st ent in appropriate position. IMPRESSION: Intraoperative images from left ureteral stent placement as above. Electronically signed by: Joshua Rangel M.D. 01/13/2023 4:15 PM
--- NOTE | 2023-01-13 16:54 | Hospitalist Progress Note ---
Date of Service January 13, 2023 Assessment & Plan (1) Hydronephrosis with renal and ureteral calculous obstruction: (2) Acute renal insufficiency: (3) SLE (systemic lupus erythematosus): Plan This is a 57-year-old female who presents to ED secondary to left flank pain x2 days. Patient is not from the area, previously resided in [place] and is now relocating to [place]. She is passing through the area when she developed her left flank pain. She has prior past medical history of systemic lupus, antiphospholipid antibody syndrome, history of CVA x2 with residual right-sided weakness for which she ambulates with a cane, CKD, history of previous kidney stones treated with lithotripsy, history of HTN and T2DM. Obstructing L prox ureteral stone with mod-severe hydronephrosis Admit to medical Plan for OR today for cystoscopy and L ureteral stent placement Continue flomax 0.4mg at HS strain all urine, pain control, scheduled tylenol, avoid nsaids 2/2 renal disease Acute renal insufficiency on CKD -> improving LINDA on CKD 3 unknown baseline cr but pt tells me she has a degree of renal dysfunction due to lupus she states her baseline eGFR is 40-60 Cr 1.5 on admission and has improved to 1.10 with hydration Continue to monitor with daily BMP SLE hx of CVA x 2 with residual R sided weakness Hx of HTN/T2DM pt currently off all medications due to lack of insurance no current manifestations of SLE at this time obtain a1c and monitor bp accordingly, bp likely elevated in setting of pain DVT ppx: SCDS, recommend resuming chemical ppx at discretion of urology FULL CODE PCP: currently establishing with new providers when they arrive to [place], [place] Patient seen in collaboration with Dr. Vilchis. Please see addendum. Admission and Anticipated Discharge Date Admission Date: January 12, 2023 Supervising Physician Co-Signing Physician Notes Attending Addendum: delayed entry date of service noted above care coordinated with BRETT Kourtney Garcia please refer to her notes for full details, I agree with her notes patient seen and examined, records reviewed by myself as well on exam, patient reports chills postprocedure Denies dysuria Still having flank pain no other symptoms VS noted and reviewed oriented x 3, not in distress, speaks in sentences with no effort nor accessory muscle use normal rate, regular rhythm, no murmurs clear breath sounds bilaterally non distended, soft, positive left-sided CVA tenderness no bipedal edema, erythema, warmth no neuro deficits All labs noted and reviewed ASSESSMENT AND PLAN Fever/chills, status post left ureteral stent placement Check urine culture, blood culture, start empiric IV cefepime Monitor closely other diagnoses and plan of care as per BRETT Kourtney Garcia's notes Stephan Vilchis MD Subjective Patient seen and examined this morning and was resting comfortably after administration of IV morphine dose. States that issues with kidney stones have gone on for years. No other new symptoms overnight. Denies any fever, chills, nausea, vomiting, abdominal pain. Denies any dysuria. No diarrhea or constipation. Plan to go to the OR this morning for stent placement. Review of Systems Review of Systems: At least ten systems reviewed and negative except as noted in the HPI. Physical Exam Physical Exam: Gen: WD/WN, NAD,lying in bed, A&Ox3 HEENT: Normocephalic, atraumatic, conjunctivae moist, sclerae anicteric, mucous membranes moist Lung: Clear to Auscultation bilaterally, no wheezes/rales/rhonchi Heart: Regular rate, regular rhythm, no murmurs, rubs, or gallops Abdomen: Soft, NT, ND +BS x 4 : L CVA TTP Extremities: no edema Skin: Warm, no rash Results & Data Results & Data Vital Signs (Past 12 Hours) Vital Signs Temp Pulse Pulse Resp BP BP Pulse Ox 01/13/23 15:14 37.2 C 79 18 125/76 96 01/13/23 13:46 37.4 C 90 20 135/84 97 01/13/23 12:41 37.4 C 77 18 122/79 96 01/13/23 12:13 37.8 C H 74 18 130/80 94 01/13/23 11:40 37 C 80 16 107/70 95 01/13/23 11:15 36.5 C 84 15 104/63 95 01/13/23 11:05 69 14 104/59 L 98 01/13/23 10:58 36.7 C 77 16 105/70 96 01/13/23 09:56 36.8 C 86 18 167/83 H 98 01/13/23 07:06 37.1 C 67 18 120/72 92 O2 Del Method O2 Flow Rate 01/13/23 15:14 Room Air 01/13/23 13:46 Room Air 01/13/23 12:41 Room Air 01/13/23 12:13 Room Air 01/13/23 11:40 Room Air 01/13/23 11:15 Room Air 01/13/23 11:05 Oxymask 4 01/13/23 10:58 Oxymask 6 01/13/23 09:56 Room Air 01/13/23 07:06 Room Air Laboratory Results Short CBC 01/13/23 Range/Units 11:31 WBC 5.92 (4.8-10.8) K/ul Hgb 10.0 L (12.0-16.0) g/dl Hct 31.0 L (37.0-47.0) % Plt Count 228 (130-400) K/uL BMP 01/13/23 11:31 Sodium 141 Potassium 3.8 Chloride 109 H Carbon Dioxide 26 BUN 22 Creatinine 1.10 D Glucose 99 Calcium 8.8 Diagnostic Findings KUB X-Ray 01/12/23 12:23 XR KUB/Abdomen 1 view CLINICAL HISTORY: known left sided kidney stone TECHNIQUE: 1 view of the abdomen was obtained. Comparison: None available at the time of this dictation. FINDINGS: Lung bases are unremarkable. Degenerative changes are seen in the visualized skeleton. The bowel gas pattern is nonobstructive. A moderate amount of stool is noted within the large bowel. IMPRESSION: No radiographic evidence of nephrolithiasis. Of note, noncontrast CT abdomen pelvis is a more sensitive modality, and per ACR criteria is appropriate for patients with acute onset flank pain with known stone disease. ACT 112: Negative or not required by law. Electronically signed by: Adam Farfan M.D. 01/12/2023 12:59 PM Abdomen/Pelvis CT 01/12/23 13:45 CT SCAN OF THE ABDOMEN AND PELVIS WITHOUT IV CONTRAST CLINICAL HISTORY: Left flank pain. COMPARISON STUDY: Abdominal radiograph dated 01/12/2023. TECHNIQUE: CT scan of the abdomen and pelvis is performed from the lung bases to the proximal femora. Images are reviewed in the axial, sagittal, and coronal planes. IV contrast was not administered for this examination. A dose lowering technique was utilized adhering to the principles of ALARA. CT DOSE: 1446.66 mGy.cm FINDINGS: Lung bases: The heart is normal in size and without pericardial effusion. The mitral annulus is calcified. The lung bases are clear noting dependent atelectasis. There is a small hiatal hernia. Liver: The unenhanced liver is enlarged measuring 18.9 cm in length. The liver demonstrates diffusely diminished attenuation indicating steatosis. There is mild central intrahepatic biliary ductal dilatation. Gallbladder: Surgically absent noting clips in the gallbladder fossa. Spleen: Normal in size and attenuation. Pancreas: Unremarkable. Adrenal glands: Unremarkable. Kidneys: The unenhanced kidneys are normal in size. There is a 9 mm obstructing calculus in the left proximal ureter seen on image #194. This is located at L3- L4 and causes moderate to severe left hydroureteronephrosis. There is associated left-sided perinephric stranding and fluid. There are at least 4 additional nonobstructing left renal calculi which measure up to 3 mm. A 4 mm nonobstructing calculus is seen in the right kidney. There is no right ureteral stone or right-sided hydronephrosis. There is no evidence of contour deforming renal mass lesion. Abdominal vasculature: The abdominal aorta is normal in course and caliber. Bowel: There is no bowel obstruction. Mild fecal retention is seen throughout the colon. The appendix is not visualized. Peritoneum: There is no intraperitoneal free air or abdominal ascites. There is a fat-containing umbilical hernia. Lymphadenopathy: None. Pelvic viscera: The bladder is decompressed and grossly unremarkable. The uterus and adnexa are normal as visualized. A metallic foreign body is noted in the right groin on axial image #388. Skeletal structures: The skeletal structures are osteopenic. There is a mild and age indeterminant superior endplate compression deformity of T12. No lytic or bl astic lesions are seen. An intrathecal catheter is in place. Sclerotic change is noted in the sacroiliac joints. IMPRESSION: 1. There is a 9 mm obstructing calculus in the left proximal ureter. This causes moderate to severe left hydroureteronephrosis. 2. Additional nonobstructing renal calculi are seen bilaterally. 3. A metallic foreign body is noted in the right groin. 4. Mild and age indeterminate superior endplate compression deformity of T12. Correlate clinically. 5. Additional findings as above. ACT 112: Negative or not required by law. Electronically signed by: Joshua Rangel M.D. 01/12/2023 2:42 PM Retrograde Pyelogram 01/13/23 07:00 INTRAOPERATIVE RADIOGRAPHS CLINICAL HISTORY: Left ureteral stent placement. Fluoro time: 18 seconds Ka,r: 7.25 mGy FINDINGS: 3 spot fluoroscopic views of the left upper abdomen are correlated with abdominal CT dated 01/12/2023. The initial image shows a wire projecting over the left renal pelvis. Injected contrast shows moderate hydronephrosis. The final images show the proximal and distal ends of a left ureteral stent in appropriate position. IMPRESSION: Intraoperative images from left ureteral stent placement as above. Electronically signed by: Joshua Rangel M.D. 01/13/2023 4:15 PM
[2023-01-13] MEDS: CEFEPIME 2,000 MG in SYRINGE 0 ML IV SCH (17:00)
[2023-01-13] MEDS: TAMSULOSIN HCL 0.4 MG CAP PO SCH (21:20)
[2023-01-13] MEDS: DOCUSATE SODIUM/SENNA 50/8.6MG TAB PO SCH (21:21)
[2023-01-14] MEDS: CEFEPIME 2,000 MG in SYRINGE 0 ML IV SCH ×4 (01:30→23:42)
[2023-01-14] MEDS: oxyCODONE HCL IR 5 MG TAB (IMMEDIATE RELEASE) PO PRN (04:08)
[2023-01-14] MEDS: ACETAMINOPHEN 325 MG TAB PO SCH (05:49)
[2023-01-14] MEDS: MoRPHine SULFATE 4 MG/ML 1 ML CARP\\VIAL IV PRN ×4 (06:43→23:41)
[2023-01-14] MEDS: ONDANSETRON INJ 2 MG/ML 2 ML VIAL IV PRN (06:43)
[2023-01-14 07:04] LABS: Hemoglobin 10.6 g/dl (12.0-16.0); Mean Corpuscular Hemoglobin 29.5 pg (25.0-34.0); Mean Corpuscular Hgb Conc 33.1 g/dL (32.0-36.0); Mean Corpuscular Volume 89.1 fL (80.0-100.0); Mean Platelet Volume 9.7 fL (9.4-12.4); Platelet Count 250 K/uL (130-400); RDW Coefficient of Variation 13.2 % (11.5-14.5); RDW Standard Deviation 42.7 fL (36.4-46.3); Red Blood Count 3.59 M/uL (4.20-5.40); White Blood Count 5.72 K/ul (4.8-10.8)
[2023-01-14 07:26] LABS: BUN Creatinine Ratio 19.2 (10-20); Calcium 8.7 mg/dl (8.6-10.3); Creatinine Clr Calc Pharmacy 77.3 ml/min; Est GFR (African American) 69.6 ml/min; Potassium 3.8 mmol/L (3.5-5.1)
--- NOTE | 2023-01-14 08:09 | Urology Progress Note ---
Date of Service January 14, 2023 Assessment & Plan (1) Hydronephrosis with renal and ureteral calculous obstruction: Plan 57yo/F admitted with intractable left flank pain secondary to a 9mm obstructing stone at the left proximal ureter with severe hydronephrosis. She is status post cystoscopy with left ureteral stent placement by Dr. Magallanes on 01/13/2023. Patient tolerating stent relatively well Labs stable Urology has sent a message to schedule outpatient follow-up Urology to sign off. Stable for discharge home from a urologic perspective. Admission and Anticipated Discharge Date Admission Date: January 12, 2023 Subjective Afebrile with stable vitals. Labs show a white blood cell count of 5.7, and a creatinine of 1.04 which was 1.11 yesterday blood cultures are negative. Patient reports some stent discomfort but states it is better than the pain from the stone prior to the procedure. Review of Systems Review of Systems: 14 point review of systems negative outside of what is listed above in HPI Physical Exam Physical Exam: General: Alert and oriented, no acute distress HEENT: Normocephalic, mucous membranes moist Pulmonary: Nonlabored respirations Abdomen: Nondistended Extremities: Moves all 4 spontaneously Neuro: No gross deficits Skin: Warm, dry, no rashes noted Results & Data Vital Signs (Past 12 Hours) Vital Signs Temp Pulse Pulse Resp BP Pulse Ox O2 Del Method 01/14/23 07:42 37.1 C 76 18 114/71 93 Room Air 01/14/23 03:06 37 C 75 18 114/72 94 Room Air 01/13/23 22:58 37.5 C 82 18 118/70 94 Room Air PG Care Time/CCT Total # of Minutes Spent Total Time Spent with Patient: Total time spent is greater than 50% in coordination of care (as documented) at patient's floor/unit and/or counseling patient: Coding Level of Care Code 89780 SUB INP/OBS CARE 2/35MIN Diagnoses Hydronephrosis with renal and ureteral calculous obstruction N13.2
[2023-01-14] MEDS: HEPARIN 100 UNIT/ML 5ML FLUSH FLUSH PRN ×3 (10:37→17:43)
[2023-01-14 11:42] LABS: Appearance Urine Clear (Clear); Bacteria Urine Automated Negative (Negative); Bilirubin Urine Negative (Negative); Blood Urine 2+ (Negative); Color Urine Yellow; Glucose Urine UA Negative (Negative); Ketones Urine Negative (Negative); Leukocyte Esterase Urine Trace (Negative); Nitrite Urine Negative (Negative); Protein Urine Trace (Negative); RBC Urine Automated >30 /hpf (0-4); Specific Gravity Urine 1.014 (1.000-1.030); Urobilinogen Urine Negative (Negative)
--- NOTE | 2023-01-14 14:34 | Hospitalist Progress Note ---
Date of Service January 14, 2023 Assessment & Plan (1) Hydronephrosis with renal and ureteral calculous obstruction: (2) Acute renal insufficiency: (3) SLE (systemic lupus erythematosus): Plan per BRETT notes with addendum: This is a 57-year-old female who presents to ED secondary to left flank pain x2 days. Patient is not from the area, previously resided in [place] and is now relocating to [place]. She is passing through the area when she developed her left flank pain. She has prior past medical history of systemic lupus, antiphospholipid antibody syndrome, history of CVA x2 with residual right-sided weakness for which she ambulates with a cane, CKD, history of previous kidney stones treated with lithotripsy, history of HTN and T2DM. Obstructing L prox ureteral stone with mod-severe hydronephrosis Admit to medical Plan for OR today for cystoscopy and L ureteral stent placement Continue flomax 0.4mg at HS strain all urine, pain control, scheduled tylenol, avoid nsaids 2/2 renal disease 01/13: Status post left ureteral stent placement 01/14: Afebrile overnight Blood cultures pending Repeat urine culture: Pending Continue IV cefepime, monitor close Acute renal insufficiency on CKD -> improving LINDA on CKD 3 unknown baseline cr but pt tells me she has a degree of renal dysfunction due to lupus she states her baseline eGFR is 40-60 Cr 1.5 on admission and has improved to 1.10 with hydration Continue to monitor with daily BMP 01/14 Creatinine 1.0 SLE hx of CVA x 2 with residual R sided weakness Hx of HTN/T2DM pt currently off all medications due to lack of insurance no current manifestations of SLE at this time obtain a1c and monitor bp accordingly, bp likely elevated in setting of pain A1c, 6.0 DVT ppx: SCDS, recommend resuming chemical ppx at discretion of urology FULL CODE PCP: currently establishing with new providers when they arrive to [place], [place] \ Admission and Anticipated Discharge Date Admission Date: January 12, 2023 Subjective Follow-up for nephrolithiasis, etc. Seen resting in bed, comfortable, not in distress, in good spirits States she feels improved today, no chills Still has some mild left-sided flank pain Denies dysuria, hematuria No other new symptoms Review of Systems Review of Systems: all noted and negative except for above Physical Exam Physical Exam: General- oriented x 3, not in distress, speaks in sentences with no effort or accessory muscle use Eyes- anicteric Neck- no JVD Lungs- clear breath sounds bilaterally, no rales/wheezes Heart- normal rate, regular rhythm; no murmurs Abdomen- normal bowel sounds, nondistended, soft, positive mild left CVA tenderness Extremities- no pretibial edema, no calf tenderness Neuro- alert, oriented x 3; no gross focal neurologic deficits Skin- warm & dry Results & Data Results & Data Vital Signs (Past 12 Hours) Vital Signs Temp Pulse Pulse Resp BP Pulse Ox O2 Del Method 01/14/23 07:42 37.1 C 76 18 114/71 93 Room Air 01/14/23 03:06 37 C 75 18 114/72 94 Room Air all noted and reviewed including below
[2023-01-14] MEDS: PHENAZOPYRIDINE HCL 200 MG TAB PO PRN (17:44)
[2023-01-14] MEDS: DOCUSATE SODIUM/SENNA 50/8.6MG TAB PO SCH (19:54)
[2023-01-14] MEDS: TAMSULOSIN HCL 0.4 MG CAP PO SCH (19:55)
[2023-01-15] MEDS: oxyCODONE HCL IR 5 MG TAB (IMMEDIATE RELEASE) PO PRN ×2 (02:05→11:56)
[2023-01-15] MEDS: PHENAZOPYRIDINE HCL 200 MG TAB PO PRN (02:06)
[2023-01-15] MEDS: ONDANSETRON INJ 2 MG/ML 2 ML VIAL IV PRN (02:08)
[2023-01-15] MEDS ORDERED: ZOLPIDEM TARTRATE 5 MG TAB PO PRN (02:20)
[2023-01-15] MEDS: MoRPHine SULFATE 4 MG/ML 1 ML CARP\\VIAL IV PRN (07:45)
[2023-01-15 08:04] LABS: Hematocrit (blood only) 35.3 % (37.0-47.0); Hemoglobin 11.7 g/dl (12.0-16.0); Mean Corpuscular Hemoglobin 29.1 pg (25.0-34.0); Mean Corpuscular Hgb Conc 33.1 g/dL (32.0-36.0); Mean Corpuscular Volume 87.8 fL (80.0-100.0); Mean Platelet Volume 9.8 fL (9.4-12.4); Platelet Count 280 K/uL (130-400); RDW Coefficient of Variation 12.7 % (11.5-14.5); RDW Standard Deviation 40.8 fL (36.4-46.3); Red Blood Count 4.02 M/uL (4.20-5.40); White Blood Count 5.96 K/ul (4.8-10.8)
[2023-01-15] MEDS: CEFEPIME 2,000 MG in SYRINGE 0 ML IV SCH (08:06)
[2023-01-15 08:27] LABS: BUN Creatinine Ratio 21.2 (10-20); Calcium 9.1 mg/dl (8.6-10.3); Creatinine Clr Calc Pharmacy 81.2 ml/min; Est GFR (African American) 73.8 ml/min; Est GFR (Non-African American) 63.7 ml/min; Potassium 3.8 mmol/L (3.5-5.1)
[2023-01-15] MEDS: HEPARIN 100 UNIT/ML 5ML FLUSH FLUSH PRN (09:43)
--- NOTE | 2023-01-15 11:54 | Hospitalist Progress Note ---
Date of Service January 15, 2023 Assessment & Plan (1) Hydronephrosis with renal and ureteral calculous obstruction: (2) Acute renal insufficiency: (3) SLE (systemic lupus erythematosus): Plan per BRETT notes with addendum: This is a 57-year-old female who presents to ED secondary to left flank pain x2 days. Patient is not from the area, previously resided in [place] and is now relocating to [place]. She is passing through the area when she developed her left flank pain. She has prior past medical history of systemic lupus, antiphospholipid antibody syndrome, history of CVA x2 with residual right-sided weakness for which she ambulates with a cane, CKD, history of previous kidney stones treated with lithotripsy, history of HTN and T2DM. Obstructing L prox ureteral stone with mod-severe hydronephrosis Admit to medical Plan for OR today for cystoscopy and L ureteral stent placement Continue flomax 0.4mg at HS strain all urine, pain control, scheduled tylenol, avoid nsaids 2/2 renal disease 01/13: Status post left ureteral stent placement developed chills post procedure cultures drawn, IV Cefepime started 01/15: Afebrile since last night clinically improving, no chills Blood cultures: negative so far Repeat urine culture: Pending given empiric Cefepime IV x 2 days, discontinue discharge on: Oxycodone, Pyridium PRN Flomax daily ff up with Urologist in 1-2 weeks for stent removal Acute Kidney Injury on CKD 3 secondary to Obstruction unknown baseline cr but pt tells me she has a degree of renal dysfunction due to lupus she states her baseline eGFR is 40-60 Cr 1.5 on admission and has improved to 1.10 with hydration Continue to monitor with daily BMP 01/15 resolved Creatinine 0.99 SLE hx of CVA x 2 with residual R sided weakness Hx of HTN/T2DM pt currently off all medications due to lack of insurance no current manifestations of SLE at this time BP stable overall A1c 6.0 plan of care discussed with patient all questions answered she is understanding, agreeable, comfortable with the plan of care Admission and Anticipated Discharge Date Admission Date: January 12, 2023 Subjective ff up for nephrolithiasis, etc seen resting in bed, comfortable states she feels better overall still has some L flank pain but improving no dysuria, hematuria no chills no other new symptoms Review of Systems Review of Systems: all noted and negative except for above Physical Exam Physical Exam: General- oriented x 3, not in distress, speaks in sentences with no effort or accessory muscle use Eyes- anicteric Neck- no JVD Lungs- clear breath sounds bilaterally, no rales/wheezes Heart- normal rate, regular rhythm; no murmurs Abdomen- normal bowel sounds, nondistended, soft, mild L CVA tenderness Extremities- no pretibial edema, no calf tenderness Neuro- alert, oriented x 3; no gross focal neurologic deficits Skin- warm & dry Results & Data Results & Data Vital Signs (Past 12 Hours) Vital Signs Temp Pulse Pulse Resp BP Pulse Ox O2 Del Method 01/15/23 11:49 37.1 C 75 80 18 135/81 95 01/15/23 09:01 95 Room Air 01/15/23 08:56 Room Air 01/15/23 07:48 37.1 C 80 18 135/81 92 Room Air all noted and reviewed including below
--- NOTE | 2023-01-15 12:02 | Discharge Summary ---
Discharge Summary Date of Service January 15, 2023 Notes For Next Care Provider Medication Changes From Visit OXYCODONE- as needed for severe pain PYRIDIUM- as needed for bladder spasm TAMSULOSIN- for ureteral dilation, passage of kidney stone Admission HPI Per Admitting Provider This is a 57-year-old female who presents to ED secondary to left flank pain x2 days. Patient is not from the area, previously resided in [place] and is now relocating to [place]. She is passing through the area when she developed her left flank pain. She has prior past medical history of systemic lupus, antiphospholipid antibody syndrome, history of CVA x2 with residual right-sided weakness for which she ambulates with a cane, CKD, history of previous kidney stones treated with lithotripsy, history of HTN and T2DM. Currently she is not taking any medications as she is disabled and lost job; therefore, they are without insurance. Left leg pain started at 5 AM yesterday. Pain is constant but waxes and wanes in severity. Pain is nonradiating. She denies any fever, chills, sweats, lightheadedness, dizziness, dysuria, hematuria, increased urgency or frequency with urination, nausea, vomiting, abdominal pain and change in bowel habits. She has history of kidney stones in the past requiring lithotripsy, but this feels different than previous. In ED patient remained hem odynamically stable. There was no signs of sepsis. Her CBC and CMP was generally unremarkable several mildly elevated BUN and creatinine at 27 and 1.54. Her urinalysis was negative. CT abdomen pelvis revealed a 9 mm obstructing stone at the left proximal ureter with severe hydronephrosis. Admission Exam Per Admitting Provider Constitutional: WD/WN, vitals as above, NAD, sitting up in bed, pleasant, conversing easily Head: Normocephalic, Atraumatic Eyes: PERRL, conjunctivae normal, anicteric sclerae ENMT: external ear and nose normal, oropharynx normal Neck: trachea midline, no thyromegaly normal visual inspection Respiratory: normal respiratory effort, lungs clear to auscultation, no wheeze, rales, rhonchi. Normal insp/exp effort, no accessory muscle use Cardiovascular: RRR, no murmur, no edema Vessels: no JVD or carotid bruit Chest: normal inspection of chest Abdomen: normal bowel sounds, soft, nontender, no hepatosplenomegaly Musculoskeletal: no cyanosis or clubbing, extremities motor strength 5/5 Skin: no rashes, warm and dry normal turgor Neurologic: PERRL, EOMI, accommodation nl, no face palsy, no dysarthria CN's II-XI intact bilaterally and moves all extremities Psychiatric: A+Ox3, euthymic affect Lymphatic: no cervical or axillary lymphadenopathy : deferred Principal Dx & Hospital Course #1 = Principal Diagnosis (1) Hydronephrosis with renal and ureteral calculous obstruction: (2) Acute renal insufficiency: (3) SLE (systemic lupus erythematosus): Plan per [facility] notes with addendum: This is a 57-year-old female who presents to ED secondary to left flank pain x2 days. Patient is not from the area, previously resided in [place] and is now relocating to [place]. She is passing through the area when she developed her left flank pain. She has prior past medical history of systemic lupus, antiphospholipid antibody syndrome, history of CVA x2 with residual right-sided weakness for which she ambulates with a cane, CKD, history of previous kidney stones treated with lithotripsy, history of HTN and T2DM. Obstructing L prox ureteral stone with mod-severe hydronephrosis Admit to medical Plan for OR today for cystoscopy and L ureteral stent placement Continue flomax 0.4mg at HS strain all urine, pain control, scheduled tylenol, avoid nsaids 2/2 renal disease 01/13: Status post left ureteral stent placement developed chills post procedure cultures drawn, IV Cefepime started 01/15: Afebrile since last night clinically improving, no chills Blood cultures: negative so far Repeat urine culture: Pending given empiric Cefepime IV x 2 days, discontinue discharge on: Oxycodone, Pyridium PRN Flomax daily ff up with Urologist in 1-2 weeks for stent removal Acute Kidney Injury on CKD 3 secondary to Obstruction unknown baseline cr but pt tells me she has a degree of renal dysfunction due to lupus she states her baseline eGFR is 40-60 Cr 1.5 on admission and has improved to 1.10 with hydration Continue to monitor with daily BMP 01/15 resolved Creatinine 0.99 SLE hx of CVA x 2 with residual R sided weakness Hx of HTN/T2DM pt currently off all medications due to lack of insurance no current manifestations of SLE at this time BP stable overall A1c 6.0 plan of care discussed with patient all questions answered she is understanding, agreeable, comfortable with the plan of care Discharge Exam General- oriented x 3, not in distress, speaks in sentences with no effort or accessory muscle use Eyes- anicteric Neck- no JVD Lungs- clear breath sounds bilaterally, no rales/wheezes Heart- normal rate, regular rhythm; no murmurs Abdomen- normal bowel sounds, nondistended, soft, mild L CVA tenderness Extremities- no pretibial edema, no calf tenderness Neuro- alert, oriented x 3; no gross focal neurologic deficits Skin- warm & dry Updated Medication List Medication Instructions Recorded Confirmed Type oxycodone 5 mg tablet 5 mg PO Q4H PRN SEVERE PAIN #14 01/15/23 Rx tabs phenazopyridine 200 mg tablet 200 mg PO TID PRN BLADDER SPASM 01/15/23 Rx (Pyridium) #14 tabs sennosides 8.6 mg-docusate sodium 2 tab PO HS 14 days #28 tabs 01/15/23 Rx 50 mg tablet (Senokot-S) tamsulosin 0.4 mg capsule 0.4 mg PO HS 14 days #14 caps 01/15/23 Rx Hospital Stay Data Consultations 01/12/23 15:38 Consult Urology Routine 01/12/23 15:39 ED Decision to Admit Stat Procedures Performed Operation Date: 01/13/23 07:00 Actual Procedures p Cystoscopy, Left Retrograde Pyelogram, Left Ureteral Stent Placement(Left) - Hoang Magallanes DO Diagnostic Imagining Performed KUB X-Ray 01/12/23 12:23 XR KUB/Abdomen 1 view CLINICAL HISTORY: known left sided kidney stone TECHNIQUE: 1 view of the abdomen was obtained. Comparison: None available at the time of this dictation. FINDINGS: Lung bases are unremarkable. Degenerative changes are seen in the visualized skeleton. The bowel gas pattern is nonobstructive. A moderate amount of stool is noted within the large bowel. IMPRESSION: No radiographic evidence of nephrolithiasis. Of note, noncontrast CT abdomen pelvis is a more sensitive modality, and per ACR criteria is appropriate for patients with acute onset flank pain with known stone disease. ACT 112: Negative or not required by law. Electronically signed by: Adam Farfan M.D. 01/12/2023 12:59 PM Abdomen/Pelvis CT 01/12/23 13:45 CT SCAN OF THE ABDOMEN AND PELVIS WITHOUT IV CONTRAST CLINICAL HISTORY: Left flank pain. COMPARISON STUDY: Abdominal radiograph dated 01/12/2023. TECHNIQUE: CT scan of the abdomen and pelvis is performed from the lung bases to the proximal femora. Images are reviewed in the axial, sagittal, and coronal planes. IV contrast was not administered for this examination. A dose lowering technique was utilized adhering to the principles of ALARA. CT DOSE: 1446.66 mGy.cm FINDINGS: Lung bases: The heart is normal in size and without pericardial effusion. The mitral annulus is calcified. The lung bases are clear noting dependent atelectasis. There is a small hiatal hernia. Liver: The unenhanced liver is enlarged measuring 18.9 cm in length. The liver demonstrates diffusely diminished attenuation indicating steatosis. There is mild central intrahepatic biliary ductal dilatation. Gallbladder: Surgically absent noting clips in the gallbladder fossa. Spleen: Normal in size and attenuation. Pancreas: Unremarkable. Adrenal glands: Unremarkable. Kidneys: The unenhanced kidneys are normal in size. There is a 9 mm obstructing calculus in the left proximal ureter seen on image #194. This is located at L3- L4 and causes moderate to severe left hydroureteronephrosis. There is associated left-sided perinephric stranding and fluid. There are at least 4 additional nonobstructing left renal calculi which measure up to 3 mm. A 4 mm nonobstructing calculus is seen in the right kidney. There is no right ureteral stone or right-sided hydronephrosis. There is no evidence of contour deforming renal mass lesion. Abdominal vasculature: The abdominal aorta is normal in course and caliber. Bowel: There is no bowel obstruction. Mild fecal retention is seen throughout the colon. The appendix is not visualized. Peritoneum: There is no intraperitoneal free air or abdominal ascites. There is a fat-containing umbilical hernia. Lymphadenopathy: None. Pelvic viscera: The bladder is decompressed and grossly unremarkable. The uterus and adnexa are normal as visualized. A metallic foreign body is noted in the right groin on axial image #388. Skeletal structures: The skeletal structures are osteopenic. There is a mild and age indeterminant superior endplate compression deformity of T12. No lytic or blastic lesions are seen. An intrathecal catheter is in place. Sclerotic change is noted in the sacroiliac joints. IMPRESSION: 1. There is a 9 mm obstructing calculus in the left proximal ureter. This causes moderate to severe left hydroureteronephrosis. 2. Additional nonobstructing renal calculi are seen bilaterally. 3. A metallic foreign body is noted in the right groin. 4. Mild and age indeterminate superior endplate compression deformity of T12. Correlate clinically. 5. Additional findings as above. ACT 112: Negative or not required by law. Electronically signed by: Joshua Rangel M.D. 01/12/2023 2:42 PM Retrograde Pyelogram 01/13/23 07:00 INTRAOPERATIVE RADIOGRAPHS CLINICAL HISTORY: Left ureteral stent placement. Fluoro time: 18 seconds Ka,r: 7.25 mGy FINDINGS: 3 spot fluoroscopic views of the left upper abdomen are correlated with abdominal CT dated 01/12/2023. The initial image shows a wire projecting ov er the left renal pelvis. Injected contrast shows moderate hydronephrosis. The final images show the proximal and distal ends of a left ureteral stent in appropriate position. IMPRESSION: Intraoperative images from left ureteral stent placement as above. Electronically signed by: Joshua Rangel M.D. 01/13/2023 4:15 PM Pending Results Patient Have Any Pending Studies at Discharge: Yes Discharge Instructions Given to Patient (Per Discharging Provider) PLEASE REFER TO YOUR NEW MEDICATION LIST AND FOLLOW INSTRUCTIONS CAREFULLY. YOUR NEW MEDICATIONS INCLUDE: OXYCODONE- as needed for severe pain PYRIDIUM- as needed for bladder spasm TAMSULOSIN- for ureteral dilation, passage of kidney stone PLEASE CALL YOUR PRIMARY CARE PHYSICIAN OR RETURN TO THE ER IF WITH WORSENING OF SYMPTOMS, INCLUDING flank/back/abdominal pain, fever/chills, nausea/vomiting, problems with u rination, etc. FOLLOW UP WITH UROLOGIST DR. HOANG MAGALLANES IN 1-2 WEEKS FOR STENT REMOVAL AND DEFINITIVE MANAGEMENT OF KIDNEY STONE. Total Time Total Time Spent Total Time Spent (In Minutes): >30 minutes
== END 2023-01-15 13:10 | disposition home or self-care (01) | DRG 660 ==
LOC: ED 11:57 → EDINP 16:39 → SUATTDRO 16:39 → 3N 21:00

== ENCOUNTER 2023-01-22 13:46 | Inpatient (IN) ==
--- NOTE | 2023-01-22 14:08 | ED Triage Note ---
Date of Service January 22, 2023 History of Present Illness This patient was briefly evaluated while in triage. An abbreviated physical exam was performed. This patient is a 57-year-old Female who presents to the ED for evaluation of concern for pain related to ureteral stent. Placed over 1 week ago for L kidney stone. Dysuria is worsening. Had so much pain today with urinating that she vomited. Does not feel like she can handle the pain. No fevers. Pain radiates into abdomen. No dyspnea Physical Exam CONSTITUTIONAL: uncomfortable appearing SKIN: pink, warm, dry CARDIAC: tachycardic rate and regular rhythm RESPIRATORY: in no respiratory distress, lungs clear to auscultation ABDOMEN: tender in suprapubic, L abdomen, and L CVA Initial orders for labs and / or imaging were placed and patient was placed in the waiting area until a bed is available. Please see further documentation for the full ED course.
[2023-01-22] MEDS ORDERED: MoRPHine SULFATE 4 MG/ML 1 ML CARP\\VIAL IV STA ×2 (14:11→16:46)
[2023-01-22 15:52] LABS: Basophils # (auto) 0.04 K/uL (0.00-0.20); Basophils % (auto) 0.6 %; Eosinophils % (auto) 1.4 %; Hematocrit (blood only) 36.9 % (37.0-47.0); Hemoglobin 12.4 g/dl (12.0-16.0); Immature Granulocytes # (auto) 0.02 K/uL (0.01-0.20); Immature Granulocytes % (auto) 0.3 %; Lymphocytes # (auto) 1.69 K/uL (1.20-3.40); Mean Corpuscular Hemoglobin 29.4 pg (25.0-34.0); Mean Corpuscular Hgb Conc 33.6 g/dL (32.0-36.0); Mean Corpuscular Volume 87.4 fL (80.0-100.0); Monocytes # (auto) 0.44 K/uL (0.11-0.59); Monocytes % (auto) 6.3 %; Neutrophils # (auto) 4.75 K/uL (1.40-6.50); Neutrophils % (auto) 67.4 %; Platelet Count 309 K/uL (130-400); RDW Coefficient of Variation 12.4 % (11.5-14.5); RDW Standard Deviation 39.6 fL (36.4-46.3); Red Blood Count 4.22 M/uL (4.20-5.40); White Blood Count 7.04 K/ul (4.8-10.8)
[2023-01-22 15:57] LABS: Albumin Globulin Ratio 1.5 (0.9-2); Albumin Level 4.7 gm/dl (3.4-5.0); BUN Creatinine Ratio 26.5 (10-20); Bilirubin,Total 0.4 mg/dl (0.2-1.0); Calcium 9.8 mg/dl (8.6-10.3); Creatinine Clr Calc Pharmacy 80.2 ml/min; Est GFR (African American) 74.7 ml/min; Est GFR (Non-African American) 64.5 ml/min; Globulin 3.1 gm/dl (2.5-4.0); Total Protein 7.8 gm/dl (6.0-8.3)
[2023-01-22] MEDS ORDERED: ONDANSETRON INJ 2 MG/ML 2 ML VIAL IV STA (16:46)
[2023-01-22] MEDS ORDERED: SODIUM CHLORIDE 0.9% 1,000 ML IV ONE ×2 (16:46→18:46)
--- NOTE | 2023-01-22 16:55 | Emergency Department Note ---
History of Present Illness General Chief complaint: Groin Pain Stated complaint: STENT PLACED IN URETHRA, PAIN Time Seen by Provider: 01/22/23 16:33 Source: patient, family ( is at the bedside), RN notes reviewed and old records reviewed (I reviewed a recent urologic note from 01-14) Mode of arrival: ambulatory Limitations: no limitations History of Present Illness Maximum Pain Intensity: 8 This patient is a 57-year-old female who comes in with nausea, dysuria, hematuria, and abdominal pain. She had a stent placed for a large kidney stone on the and was hospitalized for couple days she was discharged on Monday 1 week ago. Since then she says every day she feels a little bit worse she has had some dysuria and hematuria which she did not have before she has had no fever but has had some chills her urine has been dark. Her back feels similar to before slightly better after the stent she says. She had some nausea she vomited once today has been using oxycodone at home. She also has a history of lupus she is not currently on any treatment for this. No blood thinners. Home Medications Medication Instructions Recorded Confirmed Type phenazopyridine 200 mg tablet 200 mg PO TID PRN BLADDER SPASM 01/15/23 01/22/23 Rx (Pyridium) #14 tabs sennosides 8.6 mg-docusate sodium 2 tab PO HS 14 days #28 tabs 01/15/23 01/22/23 Rx 50 mg tablet (Senokot-S) tamsulosin 0.4 mg capsule 0.4 mg PO HS 14 days #14 caps 01/15/23 01/22/23 Rx ketorolac 10 mg tablet 10 mg PO TID PRN pain #14 tabs 01/19/23 01/22/23 Rx oxybutynin chloride 5 mg tablet 5 mg PO TID PRN bladder spasms #90 01/20/23 01/22/23 Rx tabs oxycodone 5 mg tablet 5 mg PO Q6H PRN SEVERE PAIN #7 tabs 01/20/23 01/22/23 Rx Allergies Allergy/AdvReac Type Severity Reaction Status Date / Time iodine Allergy Severe Anaphylaxis Unverified 01/12/23 15:48 levofloxacin [From Levaquin] AdvReac Mild Hallucinati Unverified 01/12/23 15:48 ng Past Med/Surg History Medical History 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 Antiphospholipid antibody syndrome Encounter for pre-operative examination HTN (hypertension) hx of, not currently on treatment Nephrolithiasis SLE (systemic lupus erythematosus) currently not on tx Stroke 2002 and 2005, R sided weakness and fatigue, walks with a cane T2DM (type 2 diabetes mellitus) Surgical History History of hip surgery Hx of appendectomy Hx of cholecystectomy Hx of lithotripsy Hx of shoulder surgery rotator cuff Family History Other Family history non-contributory Social History Smoking Status: Never smoker Hx Alcohol Use: No Hx Substance Use: No Preferred Language: Maori Communication Ability: Effective Commercial Illustrator Required: No Beliefs That Will Affect Care: None marital status: Current Living Situation: Spouse Current Living Situation Comment: in travel trailer current occupational status: disabled current occupation: former teacher Feels Safe at Home: Yes Assistive Devices: Cane and Other Review of Systems A total of 10 systems reviewed and were otherwise negative Physical Exam Vital Signs Vital Signs - 24 hr 01/22/23 14:04 01/22/23 19:29 Temperature 36.9 C Temperature Source Temporal Artery Scan Pulse Rate 103 H 71 Respiratory Rate 20 Blood Pressure 150/105 H Blood Pressure Mean 120 Pulse Oximetry 98 Oxygen Delivery Method Room Air Sepsis Recent Fever Within 48 Hours No Sepsis New/Unexplained Change in Mental Status N/A Sepsis Action Taken by Nursing No Action Required General: Well developed well nourished middle-age female who appears in no acute distress, breathing comfortably on room air. Normal speech HEENT: Normal cephalic atraumatic. Pupils are equal round and reactive to light. Extraocular movements are intact. Oropharynx is pink with moist mucous membranes. No swelling of the mouth lips or tongue. Neck: Supple with a midline trachea. No meningeal signs or stiffness, no JVD or bruits. No Stridor. Chest: Clear to auscultation bilaterally. No wheezes or rhonchi. No increased work of breathing. Heart: Regular rate and rhythm without murmurs or gallops. Abdomen: Soft mildly tender in suprapubic area nondistended without rebound guarding or rigidity. Extremities: No cyanosis clubbing or edema. No calf tenderness or assymetry Spine/Back. Non tender to palpation. No CVA tenderness Skin: Good turgor without rashes. Neurologic exam: Cranial nerves two through 12 are intact. Motor and sensation are intact and symmetrical throughout. Course Administered Medications Discontinued Medications Sodium Chloride (Nss) 1,000 mls @ 999 mls/hr IV .Q1H1M ONE Stop: 01/22/23 17:46 Last Infusion: 01/22/23 18:45 Dose: 0 mls/hr Documented By: Admin: 01/22/23 17:43 Dose: 999 mls/hr Documented By: MELY Ceftriaxone Sodium (Rocephin) 2,000 mg in 50 mls @ 100 mls/hr IV NOW STA Stop: 01/22/23 19:15 Last Infusion: 01/22/23 20:10 Dose: 0 mls/hr Documented By: Admin: 01/22/23 19:24 Dose: 100 mls/hr Documented By: ABBE Sodium Chloride (Nss) 1,000 mls @ 999 mls/hr IV .Q1H1M ONE Stop: 01/22/23 19:46 Last Infusion: 01/22/23 20:37 Dose: 0 mls/hr Documented By: Admin: 01/22/23 19:24 Dose: 999 mls/hr Documented By: ABBE Morphine Sulfate (Morphine Sulfate 4 Mg/Ml 1 Ml Carp\Vial) 4 mg IV NOW STA Stop: 01/22/23 14:12 Last Admin: 01/22/23 15:26 Dose: 4 mg Documented By: CRIS Morphine Sulfate (Morphine Sulfate 4 Mg/Ml 1 Ml Carp\Vial) 4 mg IV NOW STA Stop: 01/22/23 16:47 Last Admin: 01/22/23 17:08 Dose: 4 mg Documented By: LORNA Ondansetron HCl (Ondansetron Inj 2 Mg/Ml 2 Ml Vial) 4 mg IV NOW STA Stop: 01/22/23 16:47 Last Admin: 01/22/23 17:08 Dose: 4 mg Documented By: LORNA Medical Decision Making Differential Diagnosis Complication related to surgery, kidney stone, urinary obstruction, problems with stent, infection, kidney infection, UTI, electrolyte or metabolic abnormality, dehydration Medical Records Attestation: I reviewed the patient's medical records. Home Medications Current Medication List: was personally reviewed by me Laboratory Data Attestation: I reviewed the patient's lab results. 01/22/23 15:22 01/22/23 15:22 Lab Results 01/22/23 01/22/23 01/22/23 Range/Units 15:22 15:22 17:11 WBC 7.04 (4.8-10.8) K/ul RBC 4.22 (4.20-5.40) M/uL Hgb 12.4 (12.0-16.0) g/dl Hct 36.9 L (37.0-47.0) % MCV 87.4 (80.0-100.0) fL MCH 29.4 (25.0-34.0) pg MCHC 33.6 (32.0-36.0) g/dL RDW Std Deviation 39.6 (36.4-46.3) fL RDW Coeff of Abraham 12.4 (11.5-14.5) % Plt Count 309 (130-400) K/uL MPV 10.0 (9.4-12.4) fL Immature Gran % (Auto) 0.3 % Neut % (Auto) 67.4 % Lymph % (Auto) 24.0 % [place] % (Auto) 6.3 % Eos % (Auto) 1.4 % Baso % (Auto) 0.6 % Neut # (Auto) 4.75 (1.40-6.50) K/uL Lymph # (Auto) 1.69 (1.20-3.40) K/uL [place] # (Auto) 0.44 (0.11-0.59) K/uL Eos # (Auto) 0.10 (0.00-0.50) K/uL Baso # (Auto) 0.04 (0.00-0.20) K/uL Immature Gran # (Auto) 0.02 (0.01-0.20) K/uL Sodium 138 (136-145) mmol/L Potassium 4.0 (3.5-5.1) mmol/L Chloride 105 (98-107) mmol/L Carbon Dioxide 26 (21-32) mmol/L Anion Gap 7 (3-11) BUN 26 H (6-23) mg/dl Creatinine 0.98 (0.6-1.2) mg/dl Est Cr Clr Drug Dosing 80.2 ml/min Est GFR ( Amer) 74.7 ml/min Est GFR (Non-Af Amer) 64.5 ml/min BUN/Creatinine Ratio 26.5 H (10-20) Glucose 105 H (70-99(Fasting)) mg/dl Lactate (0.4-2.0) mmol/L Calcium 9.8 (8.6-10.3) mg/dl Total Bilirubin 0.4 (0.2-1.0) mg/dl AST 15 (13-39) U/L ALT 19 (7-52) U/L Alkaline Phosphatase 104 (34-104) U/L Total Protein 7.8 (6.0-8.3) gm/dl Albumin 4.7 (3.4-5.0) gm/dl Globulin 3.1 (2.5-4.0) gm/dl Albumin/Globulin Ratio 1.5 (0.9-2) Urine Color Dark Yellow Urine Appearance Cloudy A (Clear) Urine pH 6.0 (4.5-7.5) Ur Specific [place] 1.022 (1.000-1.030) Urine Protein 2+ H (Negative) Urine Glucose (UA) Negative (Negative) Urine Ketones Negative (Negative) Urine Blood 3+ H (Negative) Urine Nitrite Negative (Negative) Urine Bilirubin Negative (Negative) Urine Urobilinogen Negative (Negative) Ur Leukocyte Esterase 2+ H (Negative) Urine WBC (Auto) >30 H (0-5) /hpf Urine RBC (Auto) >30 H (0-4) /hpf U Hyaline Cast (Auto) 1-5 (0-5) /lpf U Epithel Cells (Auto) >30 H (0-5) /lpf Urine Bacteria (Auto) Negative (Negative) Ur Renal Epithelial Cell Not Reportable 01/22/23 Range/Units 19:20 WBC (4.8-10.8) K/ul RBC (4.20-5.40) M/uL Hgb (12.0-16.0) g/dl Hct (37.0-47.0) % MCV (80.0-100.0) fL MCH (25.0-34.0) pg MCHC (32.0-36.0) g/dL RDW Std Deviation (36.4-46.3) fL RDW Coeff of Abraham (11.5-14.5) % Plt Count (130-400) K/uL MPV (9.4-12.4) fL Immature Gran % (Auto) % Neut % (Auto) % Lymph % (Auto) % [place] % (Auto) % Eos % (Auto) % Baso % (Auto) % Neut # (Auto) (1.40-6.50) K/uL Lymph # (Auto) (1.20-3.40) K/uL [place] # (Auto) (0.11-0.59) K/uL Eos # (Auto) (0.00-0.50) K/uL Baso # (Auto) (0.00-0.20) K/uL Immature Gran # (Auto) (0.01-0.20) K/uL Sodium (136-145) mmol/L Potassium (3.5-5.1) mmol/L Chloride (98-107) mmol/L Carbon Dioxide (21-32) mmol/L Anion Gap (3-11) BUN (6-23) mg/dl Creatinine (0.6-1.2) mg/dl Est Cr Clr Drug Dosing ml/min Est GFR ( Amer) ml/min Est GFR (Non-Af Amer) ml/min BUN/Creatinine Ratio (10-20) Glucose (70-99(Fasting)) mg/dl Lactate 0.5 (0.4-2.0) mmol/L Calcium (8.6-10.3) mg/dl Total Bilirubin (0.2-1.0) mg/dl AST (13-39) U/L ALT (7-52) U/L Alkaline Phosphatase (34-104) U/L Total Protein (6.0-8.3) gm/dl Albumin (3.4-5.0) gm/dl Globulin (2.5-4.0) gm/dl Albumin/Globulin Ratio (0.9-2) Urine Color Urine Appearance (Clear) Urine pH (4.5-7.5) Ur Specific [place] (1.000-1.030) Urine Protein (Negative) Urine Glucose (UA) (Negative) Urine Ketones (Negative) Urine Blood (Negative) Urine Nitrite (Negative) Urine Bilirubin (Negative) Urine Urobilinogen (Negative) Ur Leukocyte Esterase (Negative) Urine WBC (Auto) (0-5) /hpf Urine RBC (Auto) (0-4) /hpf U Hyaline Cast (Auto) (0-5) /lpf U Epithel Cells (Auto) (0-5) /lpf Urine Bacteria (Auto) (Negative) Ur Renal Epithelial Cell Imaging Data Attestation: I personally reviewed and interpreted this imaging study as follows: My Impression: KUB x-raythe stent is in place without any other abnormalities Radiologist's Impression: Renal Ultrasound 01/22/23 14:10 US renal/blad retro comp CLINICAL HISTORY: stent placement 10 days ago, worsening dysuria/abd TECHNIQUE: Multiple sonographic real-time images of the kidneys and bladder were obtained. COMPARISON: Comparison is made to CT abdomen pelvis 01/12/2023 FINDINGS: The right kidney measures 13.1 cm in length, and the left kidney measures 12.8 cm in length. Satisfactory appearance of a stent. The right kidney is normal in size, contour, cortical thickness, and echogenicity. No hydronephrosis is identified. No renal lesion is identified. The left kidney is normal in size, contour, cortical thickness and echogenicity. No hydronephrosis is identified. No renal lesion is identified. The bladder is underdistended limiting visualization. No large intraluminal mass is seen. IMPRESSION: Unremarkable renal ultrasound. Satisfactory appearance of left renal stent. ACT 112: Negative or not required by law. Electronically signed by: Adam Farfan M.D. 01/22/2023 6:27 PM KUB X-Ray 01/22/23 16:47 XR KUB/Abdomen 1 view CLINICAL HISTORY: s/p stent TECHNIQUE: 1 view of the abdomen was obtained. Comparison: Comparison is made to abdomen radiograph 01/12/2023 FINDINGS: Double-J stent is seen on the left. Pelvic calcifications are again seen compatible with phleboliths. No nephrolithiasis is seen. The osseous structures are grossly unremarkable. The bowel gas pattern is nonobstructive. Small stool burden is seen. IMPRESSION: Satisfactory appearance of left double-J stent without acute abnormalities. ACT 112: Negative or not required by law. Electronically signed by: Adam Farfan M.D. 01/22/2023 6:22 PM MDM Narrative This patient comes in as described above. She was placed in room A3 she had been seen in triage by one of the BRETT's who put in orders for an ultrasound as well as multiple labs I did review her labs she has no white count or fever here to suggest infection she has no significant anemia she is normal renal function. Urinalysis is pending she did give a urine sample that was at the bedside and looks dark. She has stable vital signs. I also did add a KUB x-ray. She was given IV morphine prior to me seeing her I also ordered additional dose of 4 mg IV morphine 4 mg IV Zofran and 1 L normal saline bolus. She was reassessed frequently. She did require additional IV morphine. She received 1 L IV normal saline initially and then I ordered a second liter IV normal saline bolus. Her urinalysis is suboptimal with does suggest a possible infection. I did add blood cultures as well as urine culture had already been done and lactic acid. Lactic acid was normal. Ultrasound shows no obstructive uropathy and KUB was unremarkable. I did discuss case at length with Dr. Magallanes in consultation, he is her urologist he said when he put the stent in she had a lot of pus/infection and she tends to get sick quickly because of her underlying lupus and other medical problems he did recommend admitting her for antibiotics and further treatment and evaluation. I then consulted and discussed the case with Dr. Moore and he will see her in the ER for these measures I did also order the patient Rocephin 2 g IV and she will be admitted for further inpatient treatment and evaluation. Impression & Plan Renal colic, SLE (systemic lupus erythematosus), Status post cystoscopy with ureteral stent placement, UTI (urinary tract infection), Hematuria Discharge Plan Visit Data Chief Complaint: Groin Pain Stated Complaint: STENT PLACED IN URETHRA, PAIN ED Provider: Gerardo Zee Discharge Problem: Renal colic, SLE (systemic lupus erythematosus), Status post cystoscopy with ureteral stent placement, UTI (urinary tract infection), Hematuria Forms Stand Alone Forms: Sendmybag Prescriptions Prescriptions: No Action ketorolac 10 mg tablet 10 mg PO TID PRN (Reason: pain) Qty: 14 0RF oxybutynin chloride 5 mg tablet 5 mg PO TID PRN (Reason: bladder spasms) Qty: 90 0RF oxycodone 5 mg tablet 5 mg PO Q6H PRN (Reason: SEVERE PAIN) Qty: 7 0RF phenazopyridine [Pyridium] 200 mg Tablet 200 mg PO TID PRN (Reason: BLADDER SPASM) Qty: 14 0RF sennosides-docusate sodium [Senokot-S] 8.6-50 mg Tablet 2 tab PO HS 14 Days Qty: 28 1RF tamsulosin 0.4 mg Capsule 0.4 mg PO HS 14 Days Qty: 14 1RF Referrals Referrals: PCP,NO [Primary Care Provider] -
[2023-01-22 17:36] LABS: Appearance Urine Cloudy (Clear); Bacteria Urine Automated Negative (Negative); Bilirubin Urine Negative (Negative); Blood Urine 3+ (Negative); Color Urine Dark Yellow; Epithelial Cell Urine Auto >30 /lpf (0-5); Glucose Urine UA Negative (Negative); Ketones Urine Negative (Negative); Leukocyte Esterase Urine 2+ (Negative); Nitrite Urine Negative (Negative); Protein Urine 2+ (Negative); RBC Urine Automated >30 /hpf (0-4); Specific Gravity Urine 1.022 (1.000-1.030); Urobilinogen Urine Negative (Negative); WBC Urine Automated >30 /hpf (0-5)
--- NOTE | 2023-01-22 18:24 | XRay Report ---
XR KUB/Abdomen 1 view CLINICAL HISTORY: s/p stent TECHNIQUE: 1 view of the abdomen was obtained. Comparison: Comparison is made to abdomen radiograph 01/12/2023 FINDINGS: Double-J stent is seen on the left. Pelvic calcifications are again seen compatible with phleboliths. No nephrolithiasis is seen. The osseous structures are grossly unremarkable. The bowel gas pattern i s nonobstructive. Small stool burden is seen. IMPRESSION: Satisfactory appearance of left double-J stent without acute abnormalities. ACT 112: Negative or not required by law. Electronically signed by: Adam Farfan M.D. 01/22/2023 6:22 PM
--- NOTE | 2023-01-22 18:29 | Ultrasound Report ---
US renal/blad retro comp CLINICAL HISTORY: stent placement 10 days ago, worsening dysuria/abd TECHNIQUE: Multiple sonographic real-time images of the kidneys and bladder were obtained. COMPARISON: Comparison is made to CT abdomen pelvis 01/12/2023 FINDINGS: The right kidney measures 13.1 cm in length, and the left kidney measures 12.8 cm in length. Satisfac tory appearance of a stent. The right kidney is normal in size, contour, cortical thickness, and echogenicity. No hydronephrosis is identified. No renal lesion is identified. The left kidney is normal in size, contour, cortical thickness and echogenicity. No hydronephrosis i s identified. No renal lesion is identified. The bladder is underdistended limiting visualization. No large intraluminal mass is seen. IMPRESSION: Unremarkable renal ultrasound. Satisfactory appearance of left renal stent. ACT 112: Negative or not required by law. Electronically signed by: Adam Farfan M.D. 01/22/2023 6:27 PM
[2023-01-22] MEDS ORDERED: cefTRIAXone SODIUM 2,000 MG/50 ML BAG IV STA (18:46)
--- NOTE | 2023-01-22 20:49 | History & Physical Report ---
Date of Service January 22, 2023 Assessment & Plan (1) Renal colic: Plan: 57-year-old female with past med history significant for systemic lupus, antiphospholipid syndrome, history of CVA x2 with residual right-sided weakness and ambulates with a cane and on disability, chronic kidney disease, history of kidney stones with lithotripsy, hypertension, type 2 diabetes, seems current not taking medication as he is disabled and lost job comes with lower abd omen pain. Lower abdominal pain Mostly renal colic Recently had a left ureteral stent placement for kidney stone Pain control, n.p.o. after midnight, IV fluids, Flomax Consult urology in a.m. UTI Rocephin We will follow the cultures History of SLE History of CVA x2 with residual right-sided weakness History of hypertension type 2 diabetes Currently off of all meds due to lack of insurance HbA1c was 6 last admission We will monitor the blood pressure Needs follow-up DVT prophylaxis SCDs for now Disposition medical floor Full code History of Present Illness Chief Complaint: Renal colic Primary Care Provider: NO PCP 57-year-old female with past med history significant for systemic lupus, antiphospholipid syndrome, history of CVA x2 with residual right-sided weakness and ambulates with a cane and on disability, chronic kidney disease, history of kidney stones with lithotripsy, hypertension, type 2 diabetes, seems current not taking medication as she is disabled and lost job comes with lower abdomen pain. She was recently in the hospital with obstructing left ureteral stone with moderate-severe pyelonephrosis and s/p ureteroscopy left ureteral stent placement. Patient says since then she is in a lot of abdominal pain and having [employer] colored urine. Having lot of chills. Denies fevers. Denies chest pain or shortness of breath. No cough. Had episode of vomiting today because of pain. No headache. No runny nose or sore throat . Hemodynamically stable. Past medical history as mentioned above. Past surgical history. History of hip surgery. History of appendectomy. History of cholecystectomy. History of lithotripsy. History of shoulder surgery. Social history. No smoking. No alcohol use. No drug use. . Family history. Noncontributory Allergies Allergy/AdvReac Type Severity Reaction Status Date / Time iodine Allergy Severe Anaphylaxis Unverified 01/12/23 15:48 levofloxacin [From Levaquin] AdvReac Mild Hallucinati Unverified 01/12/23 15:48 ng Home Medications Medication Instructions Recorded Confirmed Type phenazopyridine 200 mg tablet 200 mg PO TID PRN BLADDER SPASM 01/15/23 01/22/23 Rx (Pyridium) #14 tabs sennosides 8.6 mg-docusate sodium 2 tab PO HS 14 days #28 tabs 01/15/23 01/22/23 Rx 50 mg tablet (Senokot-S) tamsulosin 0.4 mg capsule 0.4 mg PO HS 14 days #14 caps 01/15/23 01/22/23 Rx ketorolac 10 mg tablet 10 mg PO TID PRN pain #14 tabs 01/19/23 01/22/23 Rx oxybutynin chloride 5 mg tablet 5 mg PO TID PRN bladder spasms #90 01/20/23 01/22/23 Rx tabs oxycodone 5 mg tablet 5 mg PO Q6H PRN SEVERE PAIN #7 tabs 01/20/23 01/22/23 Rx Past Med/Surg History Medical History 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 Antiphospholipid antibody syndrome Encounter for pre-operative examination HTN (hypertension) hx of, not currently on treatment Nephrolithiasis SLE (systemic lupus erythematosus) currently not on tx Stroke 2002 and 2005, R sided weakness and fatigue, walks with a cane T2DM (type 2 diabetes mellitus) Surgical History History of hip surgery Hx of appendectomy Hx of cholecystectomy Hx of lithotripsy Hx of shoulder surgery rotator cuff Family History Other Family history non-contributory Social History Smoking Status: Never smoker Hx Alcohol Use: No Hx Substance Use: No Preferred Language: Haitian Communication Ability: Effective Verification Specialist Required: No Beliefs That Will Affect Care: None marital status: Current Living Situation: Spouse Current Living Situation Comment: lives with in a travel trailer, had to sell house this past year current occupational status: disabled current occupation: former teacher Other Information That Helps Us Care for You: No Feels Safe at Home: Yes Safety Concerns: Feels Safe At This Time Assistive Devices: Cane Review of Systems Review of Systems: All systems reviewed & are unremarkable except as noted in HPI & below Physical Exam Physical Exam: General- Not in distress Head- atraumatic Eyes- PERRL. ENT- oropharynx clear Neck- supple, no JVD. Lungs- clear to auscultation no wheezing or crackles. Heart- regular rhythm; no murmur, no gallop. Abdomen- normal bowel sounds, soft, tenderness in lower abdomen, no distension. Extremities- no pretibial edema, no erythema seen. Neuro- alert, oriented x 3; PERRL, no facial palsy; no dysarthria; Skin- warm & dry Results & Data Results & Data Vital Signs (Past 12 Hours) Vital Signs Temp Pulse Resp BP Pulse Ox O2 Del Method 01/22/23 19:29 71 01/22/23 14:04 36.9 C 103 H 20 150/105 H 98 Room Air Diagnostic Findings Laboratory Results WBC 7.04 K/ul (4.8-10.8) 01/22/23 15: RBC 4.22 M/uL (4.20-5.40) 01/22/23 15: Hgb 12.4 g/dl (12.0-16.0) 01/22/23 15: Hct 36.9 % (37.0-47.0) L 01/22/23 15: MCV 87.4 fL (80.0-100.0) 01/22/23 15: MCH 29.4 pg (25.0-34.0) 01/22/23 15: MCHC 33.6 g/dL (32.0-36.0) 01/22/23 15: RDW Std Deviation 39.6 fL (36.4-46.3) 01/22/23 15: RDW Coeff of Abraham 12.4 % (11.5-14.5) 01/22/23 15: Plt Count 309 K/uL (130-400) 01/22/23 15: MPV 10.0 fL (9.4-12.4) 01/22/23 15: Immature Gran % (Auto) 0.3 % 01/22/23 15: Neut % (Auto) 67.4 % 01/22/23 15: Lymph % (Auto) 24.0 % 01/22/23 15: [place] % (Auto) 6.3 % 01/22/23 15: Eos % (Auto) 1.4 % 01/22/23 15: Baso % (Auto) 0.6 % 01/22/23 15: Neut # (Auto) 4.75 K/uL (1.40-6.50) 01/22/23: Lymph # (Auto) 1.69 K/uL (1.20-3.40) 01/22/23 15: [place] # (Auto) 0.44 K/uL (0.11-0.59) 01/22/23 15: Eos # (Auto) 0.10 K/uL (0.00-0.50) 01/22/23 15: Baso # (Auto) 0.04 K/uL (0.00-0.20) 01/22/23: Immature Gran # (Auto) 0.02 K/uL (0.01-0.20) 01/22/23 15: Sodium 138 mmol/L (136-145) 01/22/23 15: Potassium 4.0 mmol/L (3.5-5.1) 01/22/23 15: Chloride 105 mmol/L (98-107) 01/22/23 15: Carbon Dioxide 26 mmol/L (21-32) 01/22/23 15:22 Anion Gap 7 (3-11) 01/22/23 15: BUN 26 mg/dl (6-23) H 01/22/23 15: Creatinine 0.98 mg/dl (0.6-1.2) 01/22/23 15: Est Cr Clr Drug Dosing 80.2 ml/min 01/22/23 15:22 Est GFR ( Amer) 74.7 ml/min 01/22/23 15: Est GFR (Non-Af Amer) 64.5 ml/min 01/22/23 15:22 BUN/Creatinine Ratio 26.5 (10-20) H 01/22/23 15:22 Glucose 105 mg/dl (70-99(Fasting)) H 01/22/23 15:22 Lactate 0.5 mmol/L (0.4-2.0) 01/22/23 19:20 Calcium 9.8 mg/dl (8.6-10.3) 01/22/23 15: Total Bilirubin 0.4 mg/dl (0.2-1.0) 01/22/23 15: AST 15 U/L (13-39) 01/22/23 15:22 ALT 19 U/L (7-52) 01/22/23 15: Alkaline Phosphatase 104 U/L (34-104) 01/22/23 15: Total Protein 7.8 gm/dl (6.0-8.3) 01/22/23 15: Albumin 4.7 gm/dl (3.4-5.0) 01/22/23 15: Globulin 3.1 gm/dl (2.5-4.0) 01/22/23 15: Albumin/Globulin Ratio 1.5 (0.9-2) 01/22/23 15: Urine Color Dark Yellow 01/22/23 17:11 Urine Appearance Cloudy (Clear) A 01/22/23 17:11 Urine pH 6.0 (4.5-7.5) 01/22/23 17:11 Ur Specific [place] 1.022 (1.000-1.030) 01/22/23 17:11 Urine Protein 2+ (Negative) H 01/22/23 17:11 Urine Glucose (UA) Negative (Negative) 01/22/23 17:11 Urine Ketones Negative (Negative) 01/22/23 17:11 Urine Blood 3+ (Negative) H 01/22/23 17:11 Urine Nitrite Negative (Negative) 01/22/23 17:11 Urine Bilirubin Negative (Negative) 01/22/23 17:11 Urine Urobilinogen Negative (Negative) 01/22/23 17:11 Ur Leukocyte Esterase 2+ (Negative) H 01/22/23 17:11 Urine WBC (Auto) >30 /hpf (0-5) H 01/22/23 17:11 Urine RBC (Auto) >30 /hpf (0-4) H 01/22/23 17:11 U Hyaline Cast (Auto) 1-5 /lpf (0-5) 01/22/23 17:11 U Epithel Cells (Auto) >30 /lpf (0-5) H 01/22/23 17:11 Urine Bacteria (Auto) Negative (Negative) 01/22/23 17:11 Ur Renal Epithelial Cell Not Reportable 01/22/23 17:11 Impressions Renal Ultrasound 01/22/23 14:10 US renal/blad retro comp CLINICAL HISTORY: stent placement 10 days ago, worsening dysuria/abd TECHNIQUE: Multiple sonographic real-time images of the kidneys and bladder were obtained. COMPARISON: Comparison is made to CT abdomen pelvis 01/12/2023 FINDINGS: The right kidney measures 13.1 cm in length, and the left kidney measures 12.8 cm in length. Satisfactory appearance of a stent. The right kidney is normal in size, contour, cortical thickness, and echogenicity. No hydronephrosis is identified. No renal lesion is identified. The left kidney is normal in size, contour, cortical thickness and echogenicity. No hydronephrosis is identified. No renal lesion is identified. The bladder is underdistended limiting visualization. No large intraluminal mass is seen. IMPRESSION: Unremarkable renal ultrasound. Satisfactory appearance of left renal stent. ACT 112: Negative or not required by law. Electronically signed by: Adam Farfan M.D. 01/22/2023 6:27 PM KUB X-Ray 01/22/23 16:47 XR KUB/Abdomen 1 view CLINICAL HISTORY: s/p stent TECHNIQUE: 1 view of the abdomen was obtained. Comparison: Comparison is made to abdomen radiograph 01/12/2023 FINDINGS: Double-J stent is seen on the left. Pelvic calcifications are again seen compatible with phleboliths. No nephrolithiasis is seen. The osseous structures are grossly unremarkable. The bowel gas pattern is nonobstructive. Small stool burden is seen. IMPRESSION: Satisfactory appearance of left double-J stent without acute abnormalities. ACT 112: Negative or not required by law. Electronically signed by: Adam Farfan M.D. 01/22/2023 6:22 PM Code Status & VTE Plan VTE Prophylaxis Plan VTE Prophylaxis will be ordered: Yes
[2023-01-22] MEDS ORDERED: ONDANSETRON INJ 2 MG/ML 2 ML VIAL IV PRN (22:06)
[2023-01-22] MEDS ORDERED: POLYETHYLENE (MIRALAX) 17 GM PACK PO PRN (22:06)
[2023-01-22] MEDS ORDERED: ACETAMINOPHEN 325 MG TAB PO PRN (22:06)
[2023-01-22] MEDS: SODIUM CHLORIDE 0.9% 1,000 ML IV SCH (22:32)
[2023-01-22] MEDS: HYDROmorphone INJ 0.5 MG/0.5 ML SYR IV PRN (22:32)
[2023-01-22] MEDS: TAMSULOSIN HCL 0.4 MG CAP PO SCH (22:53)
[2023-01-22] MEDS: DOCUSATE SODIUM/SENNA 50/8.6MG TAB PO SCH (22:54)
[2023-01-22] MEDS: oxyBUTYnin chloride 5 MG TAB PO PRN (22:54)
[2023-01-23] MEDS: HYDROmorphone INJ 0.5 MG/0.5 ML SYR IV PRN ×5 (01:34→21:45)
[2023-01-23] MEDS: oxyBUTYnin chloride 5 MG TAB PO PRN ×3 (04:41→21:37)
[2023-01-23 08:13] LABS: Basophils # (auto) 0.04 K/uL (0.00-0.20); Basophils % (auto) 0.7 %; Eosinophils # (auto) 0.18 K/uL (0.00-0.50); Hematocrit (blood only) 32.7 % (37.0-47.0); Hemoglobin 10.6 g/dl (12.0-16.0); Immature Granulocytes # (auto) 0.02 K/uL (0.01-0.20); Immature Granulocytes % (auto) 0.3 %; Lymphocytes # (auto) 1.77 K/uL (1.20-3.40); Lymphocytes % (auto) 29.6 %; Mean Corpuscular Hgb Conc 32.4 g/dL (32.0-36.0); Mean Corpuscular Volume 89.3 fL (80.0-100.0); Mean Platelet Volume 10.1 fL (9.4-12.4); Monocytes # (auto) 0.47 K/uL (0.11-0.59); Monocytes % (auto) 7.9 %; Neutrophils % (auto) 58.5 %; Platelet Count 275 K/uL (130-400); RDW Coefficient of Variation 12.7 % (11.5-14.5); RDW Standard Deviation 41.3 fL (36.4-46.3); Red Blood Count 3.66 M/uL (4.20-5.40); White Blood Count 5.98 K/ul (4.8-10.8)
[2023-01-23] MEDS: SODIUM CHLORIDE 0.9% 1,000 ML IV SCH ×2 (08:24→19:37)
[2023-01-23 08:34] LABS: BUN Creatinine Ratio 23.9 (10-20); Calcium 8.8 mg/dl (8.6-10.3); Creatinine Clr Calc Pharmacy 86.2 ml/min; Est GFR (African American) 80.7 ml/min; Est GFR (Non-African American) 69.6 ml/min; Magnesium 1.8 mg/dl (1.7-2.4); Potassium 3.8 mmol/L (3.5-5.1)
--- NOTE | 2023-01-23 08:54 | Urology Consultation ---
Date of Consultation January 23, 2023 Assessment & Plan (1) Ureteral stone: (2) Status post cystoscopy with ureteral stent placement: (3) Renal colic: Plan 57yo F who was recently admitted with intractable left flank pain secondary to an obstructing 9mm stone at the left proximal ureter and underwent cystoscopy and left ureteral stent placement on 01/13/[address] Magallanes. She returned to the ED on 01/22/23 due to nausea, dysuria, hematuria, and abdominal pain. - Afebrile, hemodynamically stable. - Labs reviewed - WBC 5.98, Hemoglobin 10.6, Creatinine 0.92. - UA with 3+blood, negative bacteria and nitrite. Urine and blood cultures pending. On Ceftriaxone. - KUB and renal ultrasound both show the left ureteral stent in appropriate position. - Discussed acute stone and stent management. Discussed Ureteroscopy with extraction and/or laser lithotripsy. Risks and benefits were discussed. Stone free rates were also discussed as well as possibility of multiple procedures. Ureteral stents were discussed as well as post-operative issues and pain management. Expected clinical course reviewed. She is agreeable to proceeding. All questions were answered. - Plan to proceed to OR today for cystoscopy, left retrograde pyelogram, ureteroscopy, laser lithotripsy/stone treatment, ureteral stent exchange with Dr. Magallanes. - Risks and benefits to be reviewed with patient by Dr. Magallanes. - Covered with scheduled IV Ceftriaxone. Will also give a dose of Zosyn pr eoperatively. - Continue supportive, pain management, and antibiotic therapy. - Urology will follow. Attending note: Patient independently assessed, examined, interviewed, and evaluated. Agree with note as above. Patient's vitals and labs were all reviewed. Pertinent values in the HPI and plan section. Imaging was reviewed interpreted by myself. Agree with read. Vitals were reviewed. Discussed findings extensively with patient and family. Reviewed with nurse practitioner as well as consulting physicians/team. Patient's complicated medical and surgical history was reviewed and summarized above. Patient's surgical, medical, social, and family history were all reviewed with pertinent values as above. Discussed patient's current diagnosis as well as concerns and issues. Reviewed different options moving forward. Discussed potential risks and benefits as well as possible options and concerns. Reviewed potential surgical options and interventions. Discussed potential issues and concerns related to intervention. Risk and benefits were discussed extensively with patient and any available family. Discussed potential risks related to anesthesia. Discussed risks of bleeding infection and injury. Plan for Cystoscopy and left stone treatment. History of Present Illness Attending Physician: Mac Mathews MD History of Present Illness 57 year old female who was recently admitted with intractable left flank pain secondary to an obstructing 9mm stone at the left proximal ureter and underwent cystoscopy and left ureteral stent placement on 01/13/[address] Magallanes. She returned to the ED on 01/22/23 due to nausea, dysuria, hematuria, and abdominal pain. On arrival, she was afebrile and hemodynamically stable. Labs show no leukocytosis and normal renal function. Urinalysis with 3+blood, negative nitrite, negative bacteria, 2+LE. Urine and blood cultures pending. Urine and blood cultures from prior admission were negative. IV Ceftriaxone given. Imaging shows the ureteral stent in appropriate position. Admitted to medicine for pain management. Renal ultrasound reviewed - left ureteral stent in appropriate position and no hydronephrosis. KUB - Satisfactory appearance of left double-J stent without acute abnormalities. Pt examined at bedside this AM. Awake, resting in bed on arrival. No acute distress. Still with left flank pain, managing with medication. No fevers or chills. Voiding spontaneously. Feels she may have a yeast infection. Has been NPO. Allergies Allergy/AdvReac Type Severity Reaction Status Date / Time iodine Allergy Severe Anaphylaxis Unverified 01/12/23 15:48 levofloxacin [From Levaquin] AdvReac Mild Hallucinati Unverified 01/12/23 15:48 ng Home Medications Medication Instructions Recorded Confirmed Type phenazopyridine 200 mg tablet 200 mg PO TID PRN BLADDER SPASM 01/15/23 01/22/23 Rx (Pyridium) #14 tabs sennosides 8.6 mg-docusate sodium 2 tab PO HS 14 days #28 tabs 01/15/23 01/22/23 Rx 50 mg tablet (Senokot-S) tamsulosin 0.4 mg capsule 0.4 mg PO HS 14 days #14 caps 01/15/23 01/22/23 Rx ketorolac 10 mg tablet 10 mg PO TID PRN pain #14 tabs 01/19/23 01/22/23 Rx oxybutynin chloride 5 mg tablet 5 mg PO TID PRN bladder spasms #90 01/20/23 01/22/23 Rx tabs oxycodone 5 mg tablet 5 mg PO Q6H PRN SEVERE PAIN #7 tabs 01/20/23 01/22/23 Rx Patient History Medical History 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 Antiphospholipid antibody syndrome Encounter for pre-operative examination HTN (hypertension) hx of, not currently on treatment Nephrolithiasis SLE (systemic lupus erythematosus) currently not on tx Stroke 2002 and 2005, R sided weakness and fatigue, walks with a cane T2DM (type 2 diabetes mellitus) Surgical History History of hip surgery Hx of appendectomy Hx of cholecystectomy Hx of lithotripsy Hx of shoulder surgery rotator cuff Family History Other Family history non-contributory Social History Smoking Status: Never smoker Hx Alcohol Use: No Hx Substance Use: No Preferred Language: Faroese Communication Ability: Effective Doctor Of Audiology Required: No Beliefs That Will Affect Care: None marital status: Current Living Situation: Spouse Current Living Situation Comment: lives with in a travel trailer, had to sell house this past year current occupational status: disabled current occupation: former teacher Other Information That Helps Us Care for You: No Feels Safe at Home: Yes Safety Concerns: Feels Safe At This Time Assistive Devices: Cane Review of Systems 2 Review of Systems: All systems reviewed & are unremarkable except as noted in HPI & below Physical Exam Constitutional: well developed and well nourished; no acute distress Eyes: PERRL, conjunctivae normal, anicteric sclerae Neck: normal visual inspection Respiratory: normal respiratory effort; no respiratory distress and no labored breathing Gastrointestinal (Abdomen): Inspection/Auscultation: abdomen normal to inspection Musculoskeletal: Head/Neck/Chest: normocephalic Skin: No visible rashes or lesions to exposed skin areas Neurologic: moves all extremities and awake Psychiatric: A+Ox3, euthymic affect Results & Data Vital Signs (Past 12 Hours) Vital Signs Temp Pulse Pulse Resp BP BP Pulse Ox 01/23/23 07:48 36.9 C 70 16 98/64 L 99/53 L 95 01/22/23 21:55 37.0 C 82 18 144/84 H 97 01/22/23 21:55 37.0 C 82 18 144/84 H 97 01/22/23 21:30 01/22/23 21:03 89 20 153/91 H 95 O2 Del Method 01/23/23 07:48 Room Air 01/22/23 21:55 Room Air 01/22/23 21:55 Room Air 01/22/23 21:30 Room Air 01/22/23 21:03 PG Care Time/CCT Total # of Minutes Spent Total Time Spent with Patient: Total time spent is greater than 50% in coordination of care (as documented) at patient's floor/unit and/or counseling patient: Coding Level of Care Code 89724 IN/OBS CONSULT LVL 4,60M Diagnoses Ureteral stone N20.1 Status post cystoscopy with ureteral stent placement Z96.0 Renal colic N23
[2023-01-23] MEDS ORDERED: FLUCONAZOLE 50 MG TAB PO ONE (10:30)
[2023-01-23] MEDS ORDERED: PIPERACILLIN/TAZOBACTAM 4.5 GM in DEXTROSE 5% MINI-B 100 ML IV ONE (11:30)
--- NOTE | 2023-01-23 13:30 | Anesthesiology Consultation ---
Date of Service January 23, 2023 Assessment & Plan Chart Review Chart Review: Acceptable Risk for Surgery and Patient NOT seen in Pre Admission Testing Consults Requested none ASA ASA3 Proposed Anesthesia Anesthesia Type: General Risk / Benefits Reviewed With: PT / POA / Parent / Guardian, Accepts Plan and Informed Consent Obtained History Surgery Operation Date: 01/23/23 07:50 Proposed Procedures p Cystoscopy, Ureteonephroscopy, Laser Lithotripsy with [place] Stone Extraction, Left Stent Exchange - Hoang Magallanes, DO Height/Weight Height: 5 ft 10 in Weight: 97.267 kg Allergies Allergy/AdvReac Type Severity Reaction Status Date / Time iodine Allergy Severe Anaphylaxis Unverified 01/12/23 15:48 levofloxacin [From Levaquin] AdvReac Mild Hallucinati Unverified 01/12/23 15:48 ng Medications Home Medications Medication Instructions Recorded Confirmed Last Taken phenazopyridine 200 mg tablet 200 mg PO TID PRN BLADDER SPASM 01/15/23 01/22/23 Unknown (Pyridium) #14 tabs sennosides 8.6 mg-docusate sodium 2 tab PO HS 14 days #28 tabs 01/15/23 01/22/23 Unknown 50 mg tablet (Senokot-S) tamsulosin 0.4 mg capsule 0.4 mg PO HS 14 days #14 caps 01/15/23 01/22/23 Unknown ketorolac 10 mg tablet 10 mg PO TID PRN pain #14 tabs 01/19/23 01/22/23 01/22/23 11:00 oxybutynin chloride 5 mg tablet 5 mg PO TID PRN bladder spasms #90 01/20/23 01/22/23 01/22/23 11:00 tabs oxycodone 5 mg tablet 5 mg PO Q6H PRN SEVERE PAIN #7 tabs 01/20/23 01/22/23 01/22/23 11:00 Active Medications Generic Name Dose Route Start Last Admin Trade Name Freq PRN Reason Stop Dose Admin Hydromorphone HCl 0.5 mg 01/22/23 22:06 01/23/23 12:02 Hydromorphone Inj 0.5 Mg/0.5 Ml Syr IV 02/05/23 22:05 0.5 mg Q3H PRN Administration Severe Pain (Scale 7, 8, 9,10) Sodium Chloride 1,000 mls @ 100 mls/hr 01/22/23 22:06 01/23/23 08:24 Nss IV 02/21/23 22:05 100 mls/hr .Q10H CHANCE Administration Piperacillin Sod/Tazobactam 100 mls @ 25 mls/hr 01/23/23 11:30 01/23/23 12:09 Sod 4.5 gm/ Dextrose IV 01/23/23 15:29 25 mls/hr ONE ONE Administration Protocol Oxybutynin Chloride 5 mg 01/22/23 22:06 01/23/23 11:56 Oxybutynin Chloride 5 Mg Tab PO 02/21/23 22:05 5 mg TID PRN Administration bladder spasms Senna/Docusate Sodium 2 tab 01/22/23 22:06 01/22/23 22:54 Docusate Sodium/Senna 50/8.6mg Tab PO 02/21/23 22:05 Not Given HS CHANCE Tamsulosin HCl 0.4 mg 01/22/23 22:06 01/22/23 22:53 Tamsulosin Hcl 0.4 Mg Cap PO 02/21/23 22:05 0.4 mg HS CHANCE Administration NPO Date Last Intake of Fluids: 01/22/23 Time Last Intake of Fluids: 23:00 Date Last Intake of Solids: 01/22/23 Time Last Intake of Solids: 23:00 Past Medical History Medical History 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 Antiphospholipid antibody syndrome Encounter for pre-operative examination HTN (hypertension) hx of, not currently on treatment Nephrolithiasis SLE (systemic lupus erythematosus) currently not on tx Stroke 2002 and 2005, R sided weakness and fatigue, walks with a cane T2DM (type 2 diabetes mellitus) Exercise / Class Metabolic Activity II 4-5 Yardwork/Stairs/Walk up hill Past Family History Family History Other Family history non-contributory Past Surgical History Surgical History History of hip surgery Hx of appendectomy Hx of cholecystectomy Hx of lithotripsy Hx of shoulder surgery rotator cuff Past Anesthesia History No Hx of Anesthesia Complications and No Family Hx of Anesthesia Complications History of PONV No Hx of PONV and No Hx of Motion Sickness Social History Smoking Status: Never smoker Hx Alcohol Use: No Hx Substance Use: No Physical Exam Vital Signs Last Vital Signs Temp 37.1 C 01/23/23 12:47 Pulse 70 01/23/23 12:47 Resp 18 01/23/23 12:47 BP 156/94 H 01/23/23 12:47 Pulse Ox 98 01/23/23 12:47 O2 Del Method Room Air 01/23/23 12:47 ENMT Mouth: no dentition abnormality Thyromental Distance: > or= 3.5 Finger Breadths Mallampati Class: II Neck normal visual inspection Respiratory normal respiratory effort Auscultation: lungs clear to auscultation bilaterally Cardiovascular Rate/Rhythm: regular rate and regular rhythm Neurologic moves all extremities (RLE mildly weak) Psychiatric Orientation: alert Testing Laboratory Results 01/23/23 07:36 01/23/23 07:36 Urine Color Dark Yellow 01/22/23 17:11 Urine Appearance Cloudy (Clear) A 01/22/23 17:11 Urine pH 6.0 (4.5-7.5) 01/22/23 17:11 Ur Specific [place] 1.022 (1.000-1.030) 01/22/23 17:11 Urine Protein 2+ (Negative) H 01/22/23 17:11 Urine Glucose (UA) Negative (Negative) 01/22/23 17:11 Urine Ketones Negative (Negative) 01/22/23 17:11 Urine Nitrite Negative (Negative) 01/22/23 17:11 Ur Leukocyte Esterase 2+ (Negative) H 01/22/23 17:11 Urine WBC (Auto) >30 /hpf (0-5) H 01/22/23 17:11 Urine RBC (Auto) >30 /hpf (0-4) H 01/22/23 17:11 U Hyaline Cast (Auto) 1-5 /lpf (0-5) 01/22/23 17:11 U Epithel Cells (Auto) >30 /lpf (0-5) H 01/22/23 17:11 Urine Bacteria (Auto) Negative (Negative) 01/22/23 17:11 01/22/23 17:11 Urine Culture - Preliminary Urine,Clean Catch No growth - Less than 1,000 colonies/mL, Final report to follow.
[2023-01-23] MEDS ORDERED: ePHEDrine sulfate 50 MG/ML AMP IV PRN (13:31)
[2023-01-23] MEDS ORDERED: ATROPINE SULFATE 0.1 MG/ML 10ML SYR IV PRN (13:31)
[2023-01-23] MEDS ORDERED: ONDANSETRON INJ 2 MG/ML 2 ML VIAL IV PRN (13:31)
[2023-01-23] MEDS ORDERED: DIATRIZOATE MEGLUMINE 30% 100ML VIAL INSTIL ONE (14:22)
--- NOTE | 2023-01-23 14:29 | Hospitalist Progress Note ---
Date of Service January 23, 2023 Assessment & Plan (1) Renal colic: Plan: 57-year-old female with past med history significant for systemic lupus, antiphospholipid syndrome, history of CVA x2 with residual right-sided weakness and ambulates with a cane and on disability, chronic kidney disease, history of kidney stones with lithotripsy, hypertension, type 2 diabetes, presents with lower abdominal pain. Renal colic Recent admission due to intractable left flank pain Recently admitted earlier in the month due to obstructing left proximal ureteral stone. She underwent cystoscopy with a stent placement on 01/13/2023. Afebrile since admission. No leukocytosis. Hemoglobin at baseline. Urinalysis shows 3+ blood with negative bacteria and nitrate. Urology on board; planning for cystoscopy with left retrograde pyelogram, ureteroscopy, laser lithotripsy/stone treatment. Also, ureteral stent exchange. Continue on IV ceftriaxone. We will follow-up on urine and blood culture. Possible UTI On antibiotic Rocephin We will follow the urine and blood cultures History of SLE History of CVA x2 with residual right-sided weakness History of hypertension type 2 diabetes Currently off of all meds due to lack of insurance HbA1c was 6 last admission We will monitor the blood pressure Needs follow-up DVT prophylaxis SCDs for now Disposition medical floor Full code Please note the above document was generated using voice recognition software. It may contain grammatical, syntax or spelling errors. Any formal questions or concerns about the content, text or information contained within the body of this dictation should be directly addressed to the provider for clarification Admission and Anticipated Discharge Date Admission Date: January 22, 2023 Subjective Patient seen and examined at bedside. She reports pain in her right lower quadrant. No fever or chills overnight. Review of Systems Review of Systems: All systems reviewed & are unremarkable except as noted in Subjective Physical Exam Physical Exam: Constitutional: WD/WN, vitals as above, NAD, sitting up in bed, pleasant, conversing easily Respiratory: normal respiratory effort, lungs clear to auscultation, no wheeze, rales, rhonchi. Normal insp/exp effort, no accessory muscle use Cardiovascular: RRR, no murmur, no edema Vessels: no JVD or carotid bruit Chest: normal inspection of chest Abdomen: Tenderness present in right lower quadrant. Bowel sounds present. Musculoskeletal: no cyanosis or clubbing, extremities motor strength 5/5 Skin: no rashes, warm and dry normal turgor Neurologic: PERRL, EOMI, accommodation nl, no face palsy, no dysarthria CN's II- XI intact bilaterally and moves all extremities Psychiatric: A+Ox3, euthymic affect Results & Data Results & Data Vital Signs (Past 12 Hours) Vital Signs Temp Pulse Pulse Resp BP BP Pulse Ox 01/23/23 12:47 37.1 C 70 18 L 18 156/94 H 98 01/23/23 07:48 36.9 C 70 16 98/64 L 99/53 L 95 O2 Del Method 01/23/23 12:47 Room Air 01/23/23 07:48 Room Air Laboratory Results Laboratory Results WBC 5.98 K/ul (4.8-10.8) 01/23/23 07:36 RBC 3.66 M/uL (4.20-5.40) L 01/23/23 07:36 Hgb 10.6 g/dl (12.0-16.0) L 01/23/23 07:36 Hct 32.7 % (37.0-47.0) L 01/23/23 07:36 MCV 89.3 fL (80.0-100.0) 01/23/23 07:36 MCH 29.0 pg (25.0-34.0) 01/23/23 07:36 MCHC 32.4 g/dL (32.0-36.0) 01/23/23 07:36 RDW Std Deviation 41.3 fL (36.4-46.3) 01/23/23 07:36 RDW Coeff of Abraham 12.7 % (11.5-14.5) 01/23/23 07:36 Plt Count 275 K/uL (130-400) 01/23/23 07:36 MPV 10.1 fL (9.4-12.4) 01/23/23 07:36 Immature Gran % (Auto) 0.3 % 01/23/23 07:36 Neut % (Auto) 58.5 % 01/23/23 07:36 Lymph % (Auto) 29.6 % 01/23/23 07:36 [place] % (Auto) 7.9 % 01/23/23 07:36 Eos % (Auto) 3.0 % 01/23/23 07:36 Baso % (Auto) 0.7 % 01/23/23 07:36 Neut # (Auto) 3.50 K/uL (1.40-6.50) 01/23/23 07:36 Lymph # (Auto) 1.77 K/uL (1.20-3.40) 01/23/23 07:36 [place] # (Auto) 0.47 K/uL (0.11-0.59) 01/23/23 07:36 Eos # (Auto) 0.18 K/uL (0.00-0.50) 01/23/23 07:36 Baso # (Auto) 0.04 K/uL (0.00-0.20) 01/23/23 07:36 Immature Gran # (Auto) 0.02 K/uL (0.01-0.20) 01/23/23 07:36 Sodium 141 mmol/L (136-145) 01/23/23 07:36 Potassium 3.8 mmol/L (3.5-5.1) 01/23/23 07:36 Chloride 108 mmol/L (98-107) H 01/23/23 07:36 Carbon Dioxide 27 mmol/L (21-32) 01/23/23 07:36 Anion Gap 6 (3-11) 01/23/23 07:36 BUN 22 mg/dl (6-23) 01/23/23 07:36 Creatinine 0.92 mg/dl (0.6-1.2) 01/23/23 07:36 Est Cr Clr Drug Dosing 86.2 ml/min 01/23/23 07:36 Est GFR ( Amer) 80.7 ml/min 01/23/23 07:36 Est GFR (Non-Af Amer) 69.6 ml/min 01/23/23 07:36 BUN/Creatinine Ratio 23.9 (10-20) H 01/23/23 07:36 Glucose 103 mg/dl (70-99(Fasting)) H 01/23/23 07:36 Lactate 0.5 mmol/L (0.4-2.0) 01/22/23 19:20 Calcium 8.8 mg/dl (8.6-10.3) 01/23/23 07:36 Magnesium 1.8 mg/dl (1.7-2.4) 01/23/23 07:36 Total Bilirubin 0.4 mg/dl (0.2-1.0) 01/22/23 15: AST 15 U/L (13-39) 01/22/23 15: ALT 19 U/L (7-52) 01/22/23 15:22 Alkaline Phosphatase 104 U/L (34-104) 01/22/23 15: Total Protein 7.8 gm/dl (6.0-8.3) 01/22/23 15: Albumin 4.7 gm/dl (3.4-5.0) 01/22/23: Globulin 3.1 gm/dl (2.5-4.0) 01/22/23 15: Albumin/Globulin Ratio 1.5 (0.9-2) 01/22/23 15: Urine Color Dark Yellow 01/22/23 17:11 Urine Appearance Cloudy (Clear) A 01/22/23 17:11 Urine pH 6.0 (4.5-7.5) 01/22/23 17:11 Ur Specific [place] 1.022 (1.000-1.030) 01/22/23 17:11 Urine Protein 2+ (Negative) H 01/22/23 17:11 Urine Glucose (UA) Negative (Negative) 01/22/23 17:11 Urine Ketones Negative (Negative) 01/22/23 17:11 Urine Blood 3+ (Negative) H 01/22/23 17:11 Urine Nitrite Negative (Negative) 01/22/23 17:11 Urine Bilirubin Negative (Negative) 01/22/23 17:11 Urine Urobilinogen Negative (Negative) 01/22/23 17:11 Ur Leukocyte Esterase 2+ (Negative) H 01/22/23 17:11 Urine WBC (Auto) >30 /hpf (0-5) H 01/22/23 17:11 Urine RBC (Auto) >30 /hpf (0-4) H 01/22/23 17:11 U Hyaline Cast (Auto) 1-5 /lpf (0-5) 01/22/23 17:11 U Epithel Cells (Auto) >30 /lpf (0-5) H 01/22/23 17:11 Urine Bacteria (Auto) Negative (Negative) 01/22/23 17:11 Ur Renal Epithelial Cell Not Reportable 01/22/23 17:11 Impressions Renal Ultrasound 01/22/23 14:10 US renal/blad retro comp CLINICAL HISTORY: stent placement 10 days ago, worsening dysuria/abd TECHNIQUE: Multiple sonographic real-time images of the kidneys and bladder were obtained. COMPARISON: Comparison is made to CT abdomen pelvis 01/12/2023 FINDINGS: The right kidney measures 13.1 cm in length, and the left kidney measures 12.8 cm in length. Satisfactory appearance of a stent. The right kidney is normal in size, contour, cortical thickness, and echogenicity. No hydronephrosis is identified. No renal lesion is identified. The left kidney is normal in size, contour, cortical thickness and echogenicity. No hydronephrosis is identified. No renal lesion is identified. The bladder is underdistended limiting visualization. No large intraluminal mass is seen. IMPRESSION: Unremarkable renal ultrasound. Satisfactory appearance of left renal stent. ACT 112: Negative or not required by law. Electronically signed by: Adam Farfan M.D. 01/22/2023 6:27 PM KUB X-Ray 01/22/23 16:47 XR KUB/Abdomen 1 view CLINICAL HISTORY: s/p stent TECHNIQUE: 1 view of the abdomen was obtained. Comparison: Comparison is made to abdomen radiograph 01/12/2023 FINDINGS: Double-J stent is seen on the left. Pelvic calcifications are again seen compatible with phleboliths. No nephrolithiasis is seen. The osseous structures are grossly unremarkable. The bowel gas pattern is nonobstructive. Small stool burden is seen. IMPRESSION: Satisfactory appearance of left double-J stent without acute abnormalities. ACT 112: Negative or not required by law. Electronically signed by: Adam Farfan M.D. 01/22/2023 6:22 PM
--- NOTE | 2023-01-23 14:42 | Operative Report ---
PG Post Operative Report Pre & Post Diagnosis Operation Date: 01/23/23 07:50 Pre-Op Diagnosis: ureteral stone, renal colic Post-Op Diagnosis: ureteral stone, renal colic I identified the patient and participated in the time-out.: Yes Procedure Operation Date: 01/23/23 07:50 Actual Procedures p Cystoscopy with Left Retrograde Pyelogram, Left Ureteroscopy, Laser Lithotripsy, Basket Stone Extraction, and Left Stent Exchange(Left) - Hoang Magallanes DO Surgeon Hoang Magallanes, II, DO Set Designer None Estimated Blood Loss 1 Findings Consistent with Post-Op Diagnosis Stone destroyed to dust and small fragments and larger fragments removed. Specimens Stone Fragments Drains 6 Fr x 24 ON TETHER Anesthesia Type General Complications none Disposition Disposition: Recovery Room Indications Patient with bothersome stones. Risks and benefits discussed at length. Description of Procedure Patient was consented and brought back to the operating room. Patient was placed under anesthesia in the supine position and moved to the dorsal lithotomy position. Patient was prepped and draped in the regular sterile fashion. A time out was completed identifying the correct patient and procedure. A 30degree Cystoscope was placed into the bladder and the entire bladder was examined. The UO's were identified. The stent was grasped and partially removed. A wire was placed. The UO was cannulized with a catheter and a retrograde pyelogram was completed. A wire was then replaced. A ureteral access sheath and second safety wire was placed. The flexible ureteroscope was taken into the ureter. The entire ureter and renal pelvis were examined. The stones were identified. A laser fiber was selected and the stones were pulverized to dust and small fragments. Larger fragments were grasped and removed and sent for analysis. The entire area was once again examined. No residual large fragments or areas of concern were noted. The scope was slowly removed with the wire left in place. Contrast was placed through the scope for a pyelogram to assist in stent placement. The entire ureter was examined as the scope was slowly removed. No obstructions or other areas of concern were noted. With the wire in place, a 6 Fr Double J stent was placed. Stent was left on Tether. It was confirmed with fluoroscopy. With the stent in place, the bladder was emptied. The scope was removed. The patient was cleaned, aroused from anesthesia, and transferred to the pacu in stable condition having tolerated the procedure well with no complications. I was present and participated in all aspects of the procedure. The patient will be monitored in the PACU until transferred. Plan for patient to self remove stent in 3-5 days. I attest to the content of the Intraoperative Record and any orders documented therein. Any exceptions are noted below.
[2023-01-23] MEDS: fentaNYL citrate PF 100 MCG/2 ML VIAL IV PRN ×4 (14:54→15:10)
[2023-01-23] MEDS ORDERED: HYDROmorphone INJ 0.5 MG/0.5 ML SYR IV PRN (15:38)
[2023-01-23] MEDS ORDERED: HYDROmorphone INJ 2 MG/ML SYR/VIAL ONE (15:41)
[2023-01-23] MEDS ORDERED: ACETAMINOPHEN 1,000 MG/100 ML VIAL IV STA (15:42)
--- NOTE | 2023-01-23 15:54 | Fluoroscopy Report ---
FL retrograde includes kub CLINICAL HISTORY: LT CYSTOleft-sided retrograde cystoscopy urethrogram COMPARISON STUDY: KUB 01/22/2023 FLUOROSCOPY TIME: 17.1 seconds FLUOROSCOPY IMAGES: T2 EXPOSURE DOSE: 5.87 mGy FINDINGS: Contrast is noted within a mildly dilated left renal collecting system. A left ureteral deisy nt appears to be in satisfactory positioning. IMPRESSION: Fluoroscopic assistance as above. ACT 112: Negative or not required by law. Electronically signed by: Tavon Camargo M.D. 01/23/2023 3:53 PM
[2023-01-23] MEDS ORDERED: cefTRIAXone SODIUM 2,000 MG in DEXTROSE 5 % MINI-B 50 ML IV SCH (16:00)
--- NOTE | 2023-01-23 16:12 | Anesthesiology Progress Note ---
Date of Service January 23, 2023 Anesthesia Post Procedure Vital Signs Vital Signs: Temp Pulse Pulse Pulse Resp BP BP 01/23/23 15:55 76 15 141/93 H 01/23/23 15:45 75 18 133/79 01/23/23 15:35 83 20 146/91 H 01/23/23 15:25 80 17 128/70 01/23/23 15:15 82 18 150/99 H 01/23/23 15:05 82 15 165/99 H 01/23/23 14:55 89 16 144/88 H 01/23/23 14:48 37.2 C 86 16 132/78 01/23/23 12:47 37.1 C 70 18 L 18 156/94 H 01/23/23 07:48 36.9 C 70 16 98/64 L 99/53 L 01/22/23 21:55 37.0 C 82 18 144/84 H 01/22/23 21:55 37.0 C 82 18 144/84 H 01/22/23 21:30 01/22/23 21:03 89 20 153/91 H 01/22/23 19:29 71 Pulse Ox O2 Del Method O2 Flow Rate 01/23/23 15:55 95 Room Air 01/23/23 15:45 97 Room Air 01/23/23 15:35 95 Room Air 01/23/23 15:25 95 Room Air 01/23/23 15:15 98 Room Air 01/23/23 15:05 98 Oxymask 5 01/23/23 14:55 95 Oxymask 5 01/23/23 14:48 96 Oxymask 5 01/23/23 12:47 98 Room Air 01/23/23 07:48 95 Room Air 01/22/23 21:55 97 Room Air 01/22/23 21:55 97 Room Air 01/22/23 21:30 Room Air 01/22/23 21:03 95 01/22/23 19:29 Pain Intensity Lower Abdomen: Pain Intensity: 8 Left Flank: Pain Intensity: 5 Transfer of Care Handoff Completed per policy Notes Mental Status: alert / awake / arousable Patient Amnestic to Procedure: Yes Nausea / Vomiting: adequately controlled Pain: adequately controlled Airway Patency, RR, SpO2: stable & adequate BP & HR: stable & adequate Hydration State: stable & adequate Anesthetic Complications: no major complications apparent and Pt Satisfied with anesthetic care
[2023-01-23] MEDS: CLOTRIMAZOLE 1% CR 15 GM TUBE EXT SCH ×2 (16:35→21:36)
[2023-01-23] MEDS ORDERED: SODIUM CHLORIDE 0.65% NA SOLN 45 ML (OCEAN) PRN (18:13)
[2023-01-23] MEDS: TAMSULOSIN HCL 0.4 MG CAP PO SCH (21:37)
[2023-01-23] MEDS: DOCUSATE SODIUM/SENNA 50/8.6MG TAB PO SCH (21:38)
[2023-01-24] MEDS: HYDROmorphone INJ 0.5 MG/0.5 ML SYR IV PRN ×2 (04:03→08:17)
[2023-01-24] MEDS: SODIUM CHLORIDE 0.9% 1,000 ML IV SCH (05:35)
[2023-01-24] MEDS: CLOTRIMAZOLE 1% CR 15 GM TUBE EXT SCH (08:17)
[2023-01-24 08:34] LABS: Basophils # (auto) 0.01 K/uL (0.00-0.20); Basophils % (auto) 0.1 %; Eosinophils # (auto) 0.01 K/uL (0.00-0.50); Eosinophils % (auto) 0.1 %; Hematocrit (blood only) 31.5 % (37.0-47.0); Hemoglobin 10.6 g/dl (12.0-16.0); Immature Granulocytes # (auto) 0.03 K/uL (0.01-0.20); Immature Granulocytes % (auto) 0.3 %; Lymphocytes # (auto) 1.12 K/uL (1.20-3.40); Mean Corpuscular Hemoglobin 29.4 pg (25.0-34.0); Mean Corpuscular Hgb Conc 33.7 g/dL (32.0-36.0); Mean Corpuscular Volume 87.3 fL (80.0-100.0); Mean Platelet Volume 9.9 fL (9.4-12.4); Monocytes # (auto) 0.71 K/uL (0.11-0.59); Monocytes % (auto) 8.2 %; Neutrophils # (auto) 6.75 K/uL (1.40-6.50); Neutrophils % (auto) 78.3 %; Platelet Count 280 K/uL (130-400); RDW Coefficient of Variation 12.3 % (11.5-14.5); RDW Standard Deviation 39.7 fL (36.4-46.3); Red Blood Count 3.61 M/uL (4.20-5.40); White Blood Count 8.63 K/ul (4.8-10.8)
[2023-01-24 08:58] LABS: BUN Creatinine Ratio 21.6 (10-20); Calcium 8.7 mg/dl (8.6-10.3); Creatinine Clr Calc Pharmacy 107.2 ml/min; Est GFR (Non-African American) 90.6 ml/min
--- NOTE | 2023-01-24 10:40 | Urology Progress Note ---
Date of Service January 24, 2023 Assessment & Plan (1) Ureteral stone: (2) Status post cystoscopy with ureteral stent placement: (3) Renal colic: Plan 57yo F who was recently admitted with intractable left flank pain secondary to an obstructing 9mm stone at the left proximal ureter and underwent cystoscopy and left ureteral stent placement on 01/13/[address] Magallanes. She returned to the ED on 01/22/23 due to nausea, dysuria, hematuria, and abdominal pain. POD #1 s/p Cystoscopy with Left Retrograde Pyelogram, Left Ureteroscopy, Laser Lithotripsy, Basket Stone Extraction, and Left Stent Exchange - Tethered stent became dislodged yesterday following procedure at which time she pulled the stent out. - Overall feeling well, pain has improved. - Remains afebrile, hemodynamically stable. - Labs reviewed -no leukocytosis and normal renal function. - Urine and blood cultures preliminary no growth. - Voiding spontaneously without issue. - Okay for discharge from perspective. - Recommend continuing tamsulosin, prn pain management, prn oxybutynin as needed for residual stent discomfort. - Patient is relocating to [place] this month. Encouraged her to establish care with a urologist in that area. - Worrisome signs/symptoms were reviewed. She verbalized understanding. She is aware to contact the urology office with any questions or concerns. - Urology will sign off. Please contact us with any further questions, concerns, or changes in patient status. Plan of care reviewed with Dr. Magallanes. Admission and Anticipated Discharge Date Admission Date: January 22, 2023 Subjective Pt examined at bedside this AM. Awake, sitting up in bed on arrival. No acute distress. Patient reports the tethered stent became dislodged yesterday and she removed it the rest of the way. She denies fevers, chills, nausea, vomiting. Left flank pain has improved. Voiding without issue. Eager to go home. Review of Systems Constitutional: as per Subjective / HPI Gastrointestinal: as per Subjective / HPI Genitourinary: as per Subjective / HPI Physical Exam Constitutional: well developed and well nourished; no acute distress Respiratory: normal respiratory effort; no respiratory distress and no labored breathing Skin: No visible rashes or lesions to exposed skin areas Neurologic: moves all extremities and awake Psychiatric: A+Ox3, euthymic affect Results & Data Vital Signs (Past 12 Hours) Vital Signs Temp Pulse Resp BP BP Pulse Ox O2 Del Method 01/24/23 08:22 36.6 C 73 16 137/84 94 Room Air 01/24/23 02:00 36.8 C 79 18 125/74 95 Room Air PG Care Time/CCT Total # of Minutes Spent Total Time Spent with Patient: Total time spent is greater than 50% in coordination of care (as documented) at patient's floor/unit and/or counseling patient: Coding Level of Care Code 94036 SUB INP/OBS CARE 2/35MIN Diagnoses Ureteral stone N20.1 Status post cystoscopy with ureteral stent placement Z96.0 Renal colic N23
[2023-01-24] MEDS ORDERED: HEPARIN 100 UNIT/ML 5ML FLUSH ONE (11:30)
--- NOTE | 2023-01-24 12:30 | Discharge Summary ---
Discharge Summary Date of Service January 24, 2023 Notes For Next Care Provider Recurrent renal colic s/p cystoscopy, Lithotripsy and Left Stent Exchange(Left) by Dr. Magallanes on 01/23/23 Medication Changes From Visit Oxycodone as needed for severe pain, alternate with Tylenol Fluconazole 150mg Q72H x 2 Resume tamsulosin HS Admission HPI Per Admitting Provider 57-year-old female with past med history significant for systemic lupus, antiphospholipid syndrome, history of CVA x2 with residual right-sided weakness and ambulates with a cane and on disability, chronic kidney disease, history of kidney stones with lithotripsy, hypertension, type 2 diabetes, seems current not taking medication as she is disabled and lost job comes with lower abd omen pain. She was recently in the hospital with obstructing left ureteral stone with moderate-severe pyelonephrosis and s/p ureteroscopy left ureteral stent placement. Patient says since then she is in a lot of abdominal pain and having [employer] colored urine. Having lot of chills. Denies fevers. Denies chest pain or shortness of breath. No cough. Had episode of vomiting today because of pain. No headache. No runny nose or sore throat. Hemodynamically stable. Past medical history as mentioned above. Past surgical history. History of hip surgery. History of appendectomy. Histo ry of cholecystectomy. History of lithotripsy. History of shoulder surgery. Social history. No smoking. No alcohol use. No drug use. . Family history. Noncontributory Admission Exam Per Admitting Provider General- Not in distress Head- atraumatic Eyes- PERRL. ENT- oropharynx clear Neck- supple, no JVD. Lungs- clear to auscultation no wheezing or crackles. Heart- regular rhythm; no murmur, no gallop. Abdomen- normal bowel sounds, soft, tenderness in lower abdomen, no distension. Extremities- no pretibial edema, no erythema seen. Neuro- alert, oriented x 3; PERRL, no facial palsy; no dysarthria; Skin- warm & dry Principal Dx & Hospital Course #1 = Principal Diagnosis (1) Renal colic: (2) Ureteral stone: (3) SLE (systemic lupus erythematosus): (4) Status post cystoscopy with ureteral stent placement: (5) Stroke: Plan This is a 57-year-old female with past med history significant for systemic lupus, antiphospholipid syndrome, history of CVA x2 with residual right-sided weakness and ambulates with a cane and on disability, chronic kidney disease, history of kidney stones with lithotripsy, hypertension, type 2 diabetes, presents with lower abdominal pain. Was admitted earlier in the month due to obstructing left proximal ureteral stone and underwent cystoscopy with a stent placement on 01/13/2023. Urinalysis shows 3+ blood with negative bacteria and nitrate. Underwent cystoscopy with Left Retrograde Pyelogram, Left Ureteroscopy, Laser Lithotripsy, Basket Stone Extraction, and Left Stent Exchange(Left) by Dr. Magallanes on 01/23/23. Oxycodone as needed for severe pain, alternate with Tylenol. Continue Flomax every night per urology. Their office will coordinate follow-up care. Continue Fluconazole 150mg Q72H x 2 doses and clotrimazole cream for yeast infection. Patient currently transient, recently moved from [place] planning to relocate to [place]. Has not been taking all medications as prescribed due to lack of insurance. Strongly encouraged to establish and follow with primary care while in the area- appointment made for 01/[address] Loya. Hemodynamically stable at time of discharge. Discharge Exam Gen: WD/WN, NAD, sitting up in bed, A&Ox3 HEENT: Normocephalic, atraumatic, conjunctivae moist, sclerae anicteric, mucous membranes moist Lung: Clear to Auscultation bilaterally, no wheezes/rales/rhonchi Heart: Regular rate, regular rhythm, no murmurs, rubs, or gallops Abdomen: Soft, mild RLQ and LLQ TTP, no distention or guarding, +BS x 4 Extremities: no edema Skin: Warm, no rash Updated Medication List Medication Instructions Recorded Confirmed Type phenazopyridine 200 mg tablet 200 mg PO TID PRN BLADDER SPASM 01/15/23 01/22/23 Rx (Pyridium) #14 tabs sennosides 8.6 mg-docusate sodium 2 tab PO HS 14 days #28 tabs 01/15/23 01/22/23 Rx 50 mg tablet (Senokot-S) ketorolac 10 mg tablet 10 mg PO TID PRN pain #14 tabs 01/19/23 01/22/23 Rx oxybutynin chloride 5 mg tablet 5 mg PO TID PRN bladder spasms #90 01/20/23 01/22/23 Rx tabs clotrimazole 1 % topical cream 1 applic EXT BID #15 grams 01/24/23 Rx fluconazole 150 mg tablet 150 mg PO Q3D 2 doses #2 tabs 01/24/23 Rx oxycodone 5 mg tablet 5 mg PO Q6H PRN SEVERE PAIN #10 01/24/23 Rx tabs tamsulosin 0.4 mg capsule 0.4 mg PO HS 14 days #30 caps 01/24/23 Rx Hospital Stay Data Consultations 01/22/23 19:27 ED Decision to Admit Stat 01/23/23 08:00 Consult Urology Routine Procedures Performed Operation Date: 01/23/23 07:50 Actual Procedures p Cystoscopy, Left Retrograde Pyelogram, Left Ureteronephroscopy, Laser Lithotripsy with Basket Stone Extraction, (Left) - Hoang Magallanes DO s Left Stent Exchange(Left) - Hoang Magallanes DO Diagnostic Imagining Performed 01/22/23 14:10 US Renal Bladder [US renal/blad retro comp] Stat 01/23/23 13:30 FL retrograde includes kub Routine Pending Results Patient Have Any Pending Studies at Discharge: Yes Discharge Instructions Given to Patient (Per Discharging Provider) MEDICATION CHANGES: Oxycodone as needed for severe pain, alternate with Tylenol Continue Fluconazole 150mg every 3 days and clotrimazole cream Resume tamsulosin every night SUMMARY OF TEST RESULTS: You were admitted to hospital secondary to renal colic S/p cystoscopy with Left Retrograde Pyelogram, Left Ureteroscopy, Laser Lithotripsy, Basket Stone Extraction, and Left Stent Exchange(Left) by Dr. Magallanes on 01/23/23 Preliminary urine and blood cultures without growth PENDING TEST RESULTS: None RECOMMENDATIONS FOR FOLLOW-UP: Follow up with PCP and urology as scheduled. Complete antibiotic in its entirety. Continue medication regimen as scheduled aside from changes noted above. OTHER INSTRUCTIONS: Seek medical attention if you have: * temperature above 101 * chest pain or trouble breathing * abdominal pain, nausea, vomiting * diarrhea, dark stools or bloody stools * any unanswered questions or concerns Call 911 if symptoms are severe. Please take good care of yourself. Call if you have any questions or problems. You can reach a [facility] hospitalist on duty at [facility] 24 hours a day by calling [phone]. Total Time Total Time Spent Total Time Spent (In Minutes): 50 Supervising Physician Co-Signing Physician Notes Patient seen and examined independently. Discussed with above provider. Patient reports that she is feeling much better. No abdominal pain or discomfort. Wants to go home today. DC home. Cultures negative.
== END 2023-01-24 12:18 | disposition home or self-care (01) | DRG 660 ==
LOC: ED 13:46 → 3W 20:27